=== PATIENT | male | born 1960 | race Caucasian/White ===

== ENCOUNTER 2020-08-17 08:03 | Inpatient (IN) | payer BC ==
[2020-08-17] MEDS ORDERED: SODIUM CHLORIDE 0.9% 500 ML 500 ML IV STA (08:05)
--- NOTE | 2020-08-17 08:15 | CT ---
EXAMINATION TYPE: CT brain wo con for TPA DATE OF EXAM: 08/17/2020 HISTORY: Cannot move right arm, CODE STROKE. Acute onset neuro deficit. CT DLP: 1101.8 mGycm. Automated Exposure Control for Dose Reduction was Utilized. TECHNIQUE: CT scan of the head is performed without contrast. COMPARISON: None. FINDINGS: There is no acute intracranial hemorrhage or midline shift identified. There is diffuse v entricular and sulcal prominence consistent with diffuse age-related cerebral atrophy. There is low- attenuation in the periventricular white matter consistent with chronic small vessel ischemic change. The globes are intact and the visualized sinuses are clear. IMPRESSION: No acute intracranial hemorrhage or midline shift. There is mild diffuse age-related ce rebral atrophy and mild to moderate chronic small vessel ischemic change noted.
[2020-08-17] MEDS: LABETALOL 5 MG/ML VIAL MDV IVP STA ×2 (08:19→09:01)
[2020-08-17 08:28] LABS: Glucose,Whole Blood 118 mg/dL (75-99)
--- NOTE | 2020-08-17 08:31 | ED ---
General Adult HPI - General Chief complaint: Neuro Symptoms/Deficit Stated complaint: poss stroke Time Seen by Provider: 08/17/20 08:07 Source: patient, EMS Mode of arrival: EMS Limitations: physical limitation - History of Present Illness Initial comments: Dictation was produced using [employer] dictation software. please excuse any grammatical, word or spelling errors. This patient was cared for during a federal and state declared state of emerge ncy secondary to Covid 19 Chief Complaint: 60-year-old male past medical history of coronary artery bypass presents with strokelike symptoms History of Present Illness: 60-year-old male he states he woke up this morning with left-handed sensory issues and weakness. Patient states that he woke up with the symptoms. Limits after waking up and noticing the deficits in his hand he noticed that his face also felt strange. He tried to get up and walk however was unable to light. He muscles: Patient is brought to the emergency department. Patient states he went to bed last night with out any symptoms. En route to the emergency department he had on and off strokelike symptoms accor ding to EMS. Patient had a normal sugar measured by EMS prehospital providers. Upon being in the emergency department now patient has complete resolution of his symptoms. Patient has taking any anticoagulation medications. He has no other complaints at this time. The ROS documented in this emergency department record has been reviewed and confirmed by me. Those systems with pertinent positive or negative responses have been documented in the HPI. All other systems are other negative and/or noncontributory. PHYSICAL EXAM: General Impression: Alert and oriented x3, not in acute distress HEENT: Normocephalic atraumatic, extra-ocular movements intact, pupils equal and reactive to light bilaterally, mucous membranes moist. Cardiovascular: Heart regular rate and rhythm Chest: Able to complete full sentences, no retractions, no tachypnea Abdomen: abdomen soft, non-tender, non-distended, no organomegaly Musculoskeletal: Pulses present and equal in all extremities, no peripheral edema Motor: no focal deficits noted Neurological: CN II-XII grossly intact, no focal motor or sensory deficits noted, NIH of 0 Skin: Intact with no visualized rashes Psych: Normal affect and mood ED course: 60-year-old male presents today with on and off episodic strokelike symptoms starting at 7 AM. He woke up with the symptoms. Vital signs upon arrival shows blood pressure 192/80 111, rest of vital signs within acceptable limits. He was paged. Case was discussed with Dr. Carrillo. Patient not a TPA or thrombectomy candidate at this time. Patient is reevaluated at bedside at approximately 8:40 AM. He had a recurrence of symptoms. NIH was remeasured and found to be 3-4. He had left lower facial weakness, drift of the left upper extremity and mild drift of the left lower extremity. Dr. Carrillo was recontacted at 8:43 AM. Is recommended the patient receive thrombolytics. TPA ordered at 8:45 AM. Laboratory evaluation obtained. CBC, coag panel, metabolic panel is unremarkable. Troponin is negative. Computed tomography scan of the brain and CT angios of the head and neck shows no acute processes. Case is discussed with Dr. Larry who is on-call for neurology was aware patient. Case was also discussed with Dr. Nieves who is willing to accept patient care to the ICU. Patient reevaluated at approximately 10 AM found with stable medical condition. He still has been having on and off symptoms of left upper extremity drift and left lower facial weakness. EKG interpretation: Ventricular rate 90, normal sinus rhythm, CO interval 150, QRS 90, QTC 474. No CO prolongation, no QTC prolongation, no ST or T-wave changes noted. No old EKG for comparison. Overall, this EKG is unremarkable - Related Data Home Medications Medication Instructions Recorded Confirmed Ascorbic Acid [Vitamin C] 1,000 mg PO DAILY 08/17/20 08/17/20 Aspirin EC [Ecotrin] 325 mg PO DAILY 08/17/20 08/17/20 Cholecalciferol [Vitamin D3 (25 1,000 unit PO DAILY 08/17/20 08/17/20 Mcg = 1000 Iu)] Vitamin A 8,000 unit PO DAILY 08/17/20 08/17/20 Allergies Allergy/AdvReac Type Severity Reaction Status Date / Time Penicillins Allergy Rash/Hives Verified 08/17/20 09:16 Review of Systems ROS Statement: Those systems with pertinent positive or pertinent negative responses have been documented in the HPI. ROS Other: All systems not noted in ROS Statement are negative. Past Medical History Past Medical History: Hypertension, Myocardial Infarction ([place]) History of Any Multi-Drug Resistant Organisms: None Reported Past Surgical History: Coronary Bypass/CABG, Heart Catheterization With Stent Past Psychological History: No Psychological Hx Reported Smoking Status: Never smoker Past Alcohol Use History: None Reported Past Drug Use History: None Reported General Exam Limitations: physical limitation Course Vital Signs 08/17/20 08/17/20 08/17/20 08:15 08:22 08:30 Temperature 98.1 F Pulse Rate 78 77 81 Respiratory 18 18 18 Rate Blood Pressure 207/108 192/11 175/119 O2 Sat by Pulse 98 98 99 Oximetry 08/17/20 08/17/20 08/17/20 08:40 08:58 09:10 Temperature Pulse Rate 84 82 89 Respiratory 18 18 18 Rate Blood Pressure 193/128 195/105 175/107 O2 Sat by Pulse 98 99 99 Oximetry 08/17/20 08/17/20 08/17/20 09:25 09:40 09:55 Temperature Pulse Rate 73 82 82 Respiratory 18 18 18 Rate Blood Pressure 183/105 162/105 186/114 O2 Sat by Pulse 99 98 96 Oximetry 08/17/20 08/17/20 10:10 10:25 Temperature Pulse Rate 79 77 Respiratory 18 18 Rate Blood Pressure 178/100 163/103 O2 Sat by Pulse 97 97 Oximetry Medical Decision Making - Lab Data Result diagrams: 08/17/20 08:13 08/17/20 08:13 Lab Results 08/17/20 08/17/20 08/17/20 Range/Units 08:13 08:13 08:13 WBC 5.0 (3.8-10.6) k/uL RBC 5.76 (4.30-5.90) m/uL Hgb 16.4 (13.0-17.5) gm/dL Hct 51.1 (39.0-53.0) % MCV 88.8 (80.0-100.0) fL MCH 28.5 (25.0-35.0) pg MCHC 32.1 (31.0-37.0) g/dL RDW 13.5 (11.5-15.5) % Plt Count 236 (150-450) k/uL MPV 7.2 Neutrophils % 66 % Lymphocytes % 20 % Monocytes % 7 % Eosinophils % 5 % Basophils % 1 % Neutrophils # 3.3 (1.3-7.7) k/uL Lymphocytes # 1.0 (1.0-4.8) k/uL Monocytes # 0.4 (0-1.0) k/uL Eosinophils # 0.2 (0-0.7) k/uL Basophils # 0.0 (0-0.2) k/uL PT 10.0 (9.0-12.0) sec INR 1.0 (<1.2) APTT 24.0 (22.0-30.0) sec Sodium 137 (137-145) mmol/L Potassium 4.1 (3.5-5.1) mmol/L Chloride 104 (98-107) mmol/L Carbon Dioxide 26 (22-30) mmol/L Anion Gap 7 mmol/L BUN 20 (9-20) mg/dL Creatinine 1.03 (0.66-1.25) mg/dL Est GFR (CKD-EPI)AfAm 90 (>60 ml/min/1.73 sqM) Est GFR (CKD-EPI)NonAf 78 (>60 ml/min/1.73 sqM) Glucose 119 H (74-99) mg/dL POC Glucose (mg/dL) (75-99) mg/dL POC Glu Trial Mgr ID Calcium 9.0 (8.4-10.2) mg/dL Total Bilirubin 1.2 (0.2-1.3) mg/dL AST 22 (17-59) U/L ALT 24 (4-49) U/L Alkaline Phosphatase 61 (38-126) U/L Troponin I (0.000-0.034) ng/mL Total Protein 7.1 (6.3-8.2) g/dL Albumin 4.2 (3.5-5.0) g/dL 08/17/20 08/17/20 Range/Units 08:13 08:16 WBC (3.8-10.6) k/uL RBC (4.30-5.90) m/uL Hgb (13.0-17.5) gm/dL Hct (39.0-53.0) % MCV (80.0-100.0) fL MCH (25.0-35.0) pg MCHC (31.0-37.0) g/dL RDW (11.5-15.5) % Plt Count (150-450) k/uL MPV Neutrophils % % Lymphocytes % % Monocytes % % Eosinophils % % Basophils % % Neutrophils # (1.3-7.7) k/uL Lymphocytes # (1.0-4.8) k/uL Monocytes # (0-1.0) k/uL Eosinophils # (0-0.7) k/uL Basophils # (0-0.2) k/uL PT (9.0-12.0) sec INR (<1.2) APTT (22.0-30.0) sec Sodium (137-145) mmol/L Potassium (3.5-5.1) mmol/L Chloride (98-107) mmol/L Carbon Dioxide (22-30) mmol/L Anion Gap mmol/L BUN (9-20) mg/dL Creatinine (0.66-1.25) mg/dL Est GFR (CKD-EPI)AfAm (>60 ml/min/1.73 sqM) Est GFR (CKD-EPI)NonAf (>60 ml/min/1.73 sqM) Glucose (74-99) mg/dL POC Glucose (mg/dL) 118 H (75-99) mg/dL POC Glu Trial Mgr ID Marisela Hopper Calcium (8.4-10.2) mg/dL Total Bilirubin (0.2-1.3) mg/dL AST (17-59) U/L ALT (4-49) U/L Alkaline Phosphatase (38-126) U/L Troponin I <0.012 (0.000-0.034) ng/mL Total Protein (6.3-8.2) g/dL Albumin (3.5-5.0) g/dL Critical Care Time Critical Care Time: Yes Total Critical Care Time: 33 Disposition Clinical Impression: CVA (cerebral vascular accident) Disposition: ADMITTED IP TO THIS HOSP Condition: Critical Referrals: None,Stated [REFERRING] - 1-2 days Decision Time: 10:35
[2020-08-17 08:36] LABS: Basophils % (A) 1 %; Eosinophils # (A) 0.2 k/uL (0-0.7); Eosinophils % (A) 5 %; HCT 51.1 % (39.0-53.0); HGB 16.4 gm/dL (13.0-17.5); Lymphocytes % (A) 20 %; MCH 28.5 pg (25.0-35.0); MCHC 32.1 g/dL (31.0-37.0); MCV 88.8 fL (80.0-100.0); Mean Platelet Volume 7.2; Monocytes # (A) 0.4 k/uL (0-1.0); Monocytes % (A) 7 %; Neutrophils # (A) 3.3 k/uL (1.3-7.7); Neutrophils % (A) 66 %; Platelet Count 236 k/uL (150-450); RBC 5.76 m/uL (4.30-5.90); RDW 13.5 % (11.5-15.5)
[2020-08-17 08:43] LABS: Albumin 4.2 g/dL (3.5-5.0); Potassium 4.1 mmol/L (3.5-5.1); Total Bilirubin 1.2 mg/dL (0.2-1.3); Total Protein 7.1 g/dL (6.3-8.2)
[2020-08-17] MEDS ORDERED: Alteplase PER PHARMACY Stroke 1 EACH MISC MISCELLANE PRN (08:44)
[2020-08-17] MEDS ORDERED: ALTEPLASE 62 MG in EMPTY BAG 1 BAG IV STA (08:46)
[2020-08-17] MEDS ORDERED: ALTEPLASE BOLUS 7 MG in EMPTY SYRINGE 1 SYR IV STA (08:46)
--- NOTE | 2020-08-17 08:47 | CT ---
EXAMINATION TYPE: CT angio head neck DATE OF EXAM: 08/17/2020 HISTORY: CODE STROKE: left arm weakness, neuro deficits COMPARISON: None. CT DLP: 498.7 mGycm. Automated Exposure Control for Dose Reduction was Utilized. TECHNIQUE: CTA scan of the head and neck there performed with IV Contrast, patient injected with 65 mL of Isovue 370, axial images are obtained, coronal and sagittal reformatted images are reviewed. Th ree-D reconstructed images are created on an independent workstation and reviewed. FINDINGS: Carotid/Vascular Structures: Normal three-vessel origin from aortic arch. Right common carotid artery showed normal origin from brachiocephalic artery. No significant plaque or stenosis in the common or internal carotid arteries bilaterally including a level carotid bulbs. Mild mixed plaque seen in the left internal carotid artery shortly after its origin. No significant plaque or stenosis in the bila teral external carotid arteries. There is dominant left vertebral artery. Vertebral arteries are conteh nt to basilar junction. There is a patent left posterior communicating artery. There is hypoplastic r ight posterior communicating artery. There is no significant focal stenosis or aneurysmal change. Anterior circulation shows patent small caliber and segment anterior communicating artery. There is n o significant focal stenosis or aneurysmal change in the anterior circulation. Other: Partial visualization of post-CABG changes with mediastinal clips and sternal wires. Moderate to severe anterior spurring C5-C7 levels. Posterior spurring effaces the anterior thecal sac at these levels. IMPRESSION: No significant stenosis in common or internal carotid arteries bilaterally. No significa nt stenosis or aneurysmal change at the level of the [place].
[2020-08-17] MEDS ORDERED: LABETALOL 200 MG in SODIUM CHLORIDE 0.9% 160 ML IV ONE (10:01)
[2020-08-17] MEDS ORDERED: TICAGRELOR 90 MG TAB PO STA (10:01)
[2020-08-17] MEDS ORDERED: ATORVASTATIN 80 MG TAB PO STA (10:02)
[2020-08-17] MEDS ORDERED: LABETALOL 5 MG/ML VIAL MDV IVP STA (10:02)
[2020-08-17] MEDS ORDERED: niCARdipine 20 MG in SODIUM CHLORIDE 0.9% 192 ML IV SCH (10:30)
[2020-08-17] MEDS ORDERED: NALOXONE 0.4 MG/ML 1 ML VIAL IV PRN (10:33)
--- NOTE | 2020-08-17 10:44 | XR ---
EXAMINATION TYPE: XR chest 1V portable DATE OF EXAM: 08/17/2020 HISTORY: Shortness of breath. COMPARISON: 11/21/09 TECHNIQUE: Single view of the chest is submitted. FINDINGS: Demonstrated are scattered senescent parenchymal change. There is no evidence for focal infiltrate. The heart is stable. Hilar and mediastinal structures are within normal limits. Degenerative changes are seen of the dorsal spine. IMPRESSION: 1. Chronic changes without evidence for acute pulmonary disease.
[2020-08-17] MEDS ORDERED: SODIUM CHLORIDE 0.9% 1,000 ML IV SCH (10:45)
--- NOTE | 2020-08-17 14:04 | P.CNNES ---
History of Present Illness Consult date: 08/17/20 Requesting physician: Valdemar Valdovinos Reason for Consult: CVA History of Present Illness: Patient is a 60-year-old male came to the hospital at 8:03 AM by ambulance, he apparently came to the hospital with recurrent left-sided symptoms. Patient states that he went to sleep last night as usual. He remembers waking up at around 5:30 AM and extended to someone and was fine, went back to bed. At 7 AM he woke up and felt funny, left arm felt heavy. When he was walking, left leg felt weak and felt dizzy. While walking he fell onto the left side. He sat on the bed, and called ambulance. While he was en-route to the hospital, all his symptoms went away. However before he arrived to the hospital the symptoms sunita ppeared. Stroke code was activated. His symptoms again went away after short period of time in the ER. Patient's symptoms completely resolved in the ER and was considered not a candidate for TPA. However at 8:40 AM, while he was in the CT scanner, he has recurrence of symptoms with NIH stroke scale of 3-4. He had left lower facial weakness, drift of the left upper extremity and mild drift of the left lower activity. ED staff discussed with stroke neurologist, Dr Rico, and patient was given TPA ordered at 8:45 AM. However even after giving TPA, patient has 5-8 recurrent spells of left hemiparesis, in which he had significant weakness of his left arm and leg, facial droop and slurred speech. Each of them lasting for about 5 minutes. Patient was given Brillinta at 10:09 AM as per recommendation from Dr. Whitley. At present patient has no symptoms and he is back to baseline. Patient's last focal symptoms was on 10:40 AM. Blood pressure on arrival to the ER 207/108, pulse rate 78, temperature 98.1. Patient received 10 mg of labetalol which controlled the blood pressure to ac ceptable range. CT head showed no acute intracranial hemorrhage or midline shift. There is mild diffuse age-related cerebral atrophy in [id number] chronic small vessel ischemic change. CTA of head and neck showed no significant stenosis, nor internal carotid arteries bilaterally. No significant stenosis or aneurysm was change at the level of [place]. EKG shows normal sinus rhythm. Patient's blood test shows normal CBC, PT/PTT, Chem-20. Patient does take aspirin 325 mg for the last 12 years since he had undergone open heart surgery. Also has history of cardiac stents. Patient has hypertension, but no diabetes. No previous history of strokes TIA. He is a nonsmoker does not drink alcohol. Patient also takes vitamin A 8000 units daily, vitamin C and vitamin D 1000 units daily. Review of Systems At present completely unremarkable. All 14 point review of systems reviewed with the patient. Past Medical History Past Medical History: Hypertension, Myocardial Infarction ([place]) History of Any Multi-Drug Resistant Organisms: None Reported Past Surgical History: Coronary Bypass/CABG, Heart Catheterization With Stent Past Psychological History: No Psychological Hx Reported Smoking Status: Never smoker Past Alcohol Use History: None Reported Past Drug Use History: None Reported Medications and Allergies Home Medications Medication Instructions Recorded Confirmed Type Ascorbic Acid [Vitamin C] 1,000 mg PO DAILY 08/17/20 08/17/20 History Aspirin EC [Ecotrin] 325 mg PO DAILY 08/17/20 08/17/20 History Cholecalciferol [Vitamin D3 (25 1,000 unit PO DAILY 08/17/20 08/17/20 History Mcg = 1000 Iu)] Vitamin A 8,000 unit PO DAILY 08/17/20 08/17/20 History Allergies Allergy/AdvReac Type Severity Reaction Status Date / Time Penicillins Allergy Rash/Hives Verified 08/17/20 09:16 Physical Examination - Vital Signs Vital Signs: Vital Signs Temp Pulse Resp BP Pulse Ox 08/17/20 10:10 79 18 178/100 97 08/17/20 09:55 82 18 186/114 96 08/17/20 09:40 82 18 162/105 98 08/17/20 09:25 73 18 183/105 99 08/17/20 09:10 89 18 175/107 99 08/17/20 08:58 82 18 195/105 99 08/17/20 08:40 84 18 193/128 98 08/17/20 08:30 81 18 175/119 99 08/17/20 08:22 98.1 F 77 18 192/11 98 08/17/20 08:15 78 18 207/108 98 Intake and Output 08/16/20 08/17/20 08/17/20 22:59 06:59 14:59 Other: Weight 77.111 kg On examination patient is a late middle aged male, in no acute distress. Patient is alert and awake fully oriented to time place and person. Speech and language functions are normal. Attention and concentration fund of knowledge adequate. On cranial nerve examination pupils are round and reactive to light, visual aviles are full on confrontation, extraocular muscles are intact with no nystagmus. Face is symmetric, tongue protrudes the midline. Palatal elevation and sensation normal, hearing and shoulder shrug normal. Facial sensation is normal. On muscle strength testing there is no pronator drift and the strength is normal in arms and legs distally and proximally. Reflexes are 1+ and plantars downgoing. Sensory to touch is equal with no negle ct on double simultaneous stimulation. No ataxia for [id number] or [id number] testing, tone and bulk of muscles normal. Gait deferred. On general examination there is no bruit, S1 and S2 audible, peripheral pulses present. No peripheral edema. Abdomen soft nontender, chest clear. Results - Laboratory Findings CBC and BMP: 08/17/20 08:13 08/17/20 08:13 Abnormal Lab Findings: Abnormal Labs 08/17/20 08/17/20 08:13 08:16 Glucose 119 H POC Glucose (mg/dL) 118 H Assessment and Plan Assessment: * Recurrent crescendo type of TIA/CVA with left hemiparesis, since 7 AM this morning. Patient is status post TPA. Symptoms are fine resolved since he received Brillinta. * Hypertension * Coronary artery disease Plan: * Patient has received TPA, doing very well. Denies any focal symptoms. As patient was still having recurrent symptoms on the left side, patient was given Brillinta 90 mg loading dose in the ER. Since then patient's symptoms have resolved. * At present patient's NIH stroke scale is 0. * Patient will be admitted to ICU for close neurological monitoring and neuro checks. * Patient to have repeat computed tomography scan of head in 24 hours. * Patient had a CTA of head and neck, which revealed no significant stenosis. * 2-D echo with bubble study, rule out PFO. * Hemoglobin A1c, fasting lipid panel. * Discussed with neuro intervention team in detail.
[2020-08-17 14:36] VITALS: BP 174/104; PULSE 76; RESP 17; TEMP 97
[2020-08-17] MEDS ORDERED: TICAGRELOR 90 MG TAB PO ONE (21:00)
--- NOTE | 2020-09-16 21:30 | P.HPIM ---
History of Present Illness H&P Date: 08/19/20 i never saw or examined this patient he was tranfered from the ER after TPA never admitted. Past Medical History Past Medical History: Hypertension, Myocardial Infarction ([place]) History of Any Multi-Drug Resistant Organisms: None Reported Past Surgical History: Coronary Bypass/CABG, Heart Catheterization With Stent Past Psychological History: No Psychological Hx Reported Smoking Status: Never smoker Past Alcohol Use History: None Reported Past Drug Use History: None Reported Medications and Allergies Home Medications Medication Instructions Recorded Confirmed Type Ascorbic Acid [Vitamin C] 1,000 mg PO DAILY 08/17/20 08/17/20 History Aspirin EC [Ecotrin] 325 mg PO DAILY 08/17/20 08/17/20 History Cholecalciferol [Vitamin D3 (25 1,000 unit PO DAILY 08/17/20 08/17/20 History Mcg = 1000 Iu)] Vitamin A 8,000 unit PO DAILY 08/17/20 08/17/20 History Allergies Allergy/AdvReac Type Severity Reaction Status Date / Time Penicillins Allergy Rash/Hives Verified 08/17/20 09:16 Physical Exam Osteopathic Statement: *. No significant issues noted on an osteopathic structural exam other than those noted in the History and Physical/Consult. Results CBC & Chem 7: 08/17/20 08:13 08/17/20 08:13
== END 2020-08-18 02:03 | disposition short-term general hospital (02) | DRG 62 ==
LOC: EC 08:03 → 2SICU 10:33
PROVIDERS: ADMIT Family Medicine; ATTEND Family Medicine
DX: I63.9 Cerebral infarction, unspecified (principal); G81.94 Hemiplegia, unspecified affecting left nondominant side; R29.810 Facial weakness; R47.81 Slurred speech; R29.708 NIHSS score 8; I10 Essential (primary) hypertension; I25.10 Atherosclerotic heart disease of native coronary artery without angina pectoris; I25.2 Old myocardial infarction; Z79.82 Long term (current) use of aspirin; Z79.899 Other long term (current) drug therapy; Z95.5 Presence of coronary angioplasty implant and graft; Z95.1 Presence of aortocoronary bypass graft; Z88.0 Allergy status to penicillin
CPT/HCPCS: 36415; 37195; 70450; 70496; 70498; 71045; 80053; 84484; 85025; 85610; 85730; 93005; 96374; 99291

== ENCOUNTER 2023-03-18 19:42 | Inpatient (IN) | payer BC, MEDICARE ==
[2023-03-18 21:03] LABS: Basophils % (A) 0 %; Eosinophils # (A) 0.3 k/uL (0-0.7); Eosinophils % (A) 4 %; HCT 46.3 % (39.0-53.0); HGB 15.3 gm/dL (13.0-17.5); Lymphocytes # (A) 1.3 k/uL (1.0-4.8); Lymphocytes % (A) 19 %; MCH 29.7 pg (25.0-35.0); MCHC 33.1 g/dL (31.0-37.0); MCV 89.8 fL (80.0-100.0); Mean Platelet Volume 7.5; Monocytes # (A) 0.5 k/uL (0-1.0); Monocytes % (A) 8 %; Neutrophils # (A) 4.3 k/uL (1.3-7.7); Neutrophils % (A) 66 %; Platelet Count 267 k/uL (150-450); RBC 5.16 m/uL (4.30-5.90); RDW 13.5 % (11.5-15.5); WBC 6.5 k/uL (3.8-10.6)
[2023-03-18 21:11] LABS: ALT 22 U/L (4-49); AST 26 U/L (17-59); African American GFR (CKD) >90 (>60 ml/min/1.73 sqM); Albumin 4.2 g/dL (3.5-5.0); Alkaline Phosphatase 71 U/L (38-126); Anion Gap 11 mmol/L; Blood Urea Nitrogen 14 mg/dL (9-20); Calcium 9.2 mg/dL (8.4-10.2); Carbon Dioxide 25 mmol/L (22-30); Chloride 102 mmol/L (98-107); Glucose 99 mg/dL (74-99); Magnesium 2.1 mg/dL (1.6-2.3); Non-African American GFR(CKD) >90 (>60 ml/min/1.73 sqM); Potassium 4.1 mmol/L (3.5-5.1); Sodium 138 mmol/L (137-145); Total Bilirubin 1.3 mg/dL (0.2-1.3); Total Protein 7.2 g/dL (6.3-8.2)
--- NOTE | 2023-03-18 21:38 | XR ---
EXAMINATION TYPE: XR chest 2V DATE OF EXAM: 03/18/2023 COMPARISON: 08/17/2020 HISTORY: 62-year-old male with chest pain TECHNIQUE: PA and lateral views FINDINGS: Heart normal size. Aorta and pulmonary vasculature within normal limits. Median sternotomy wires. Jasper e type of retained lead fragments are noted at the base of the heart. Loop recorder device along the left paramedian anterior chest wall. No consolidation or pleural effusion. Addition the mid thoracic spine. IMPRESSION: 1. Thin wire fragment projecting at the base of the heart. Probably fractured and migrated pacer lead . Clinically correlate. 2. Post-CABG changes. Otherwise, no acute process seen.
[2023-03-18] MEDS ORDERED: HEPARIN SODIUM 1,000 UN/ML (10ML VL) IV ONE (21:50)
[2023-03-18] MEDS ORDERED: HEPARIN SODIUM 1,000 UN/ML (10ML VL) IV PRN (21:50)
[2023-03-18] MEDS ORDERED: NALOXONE 0.4 MG/ML 1 ML VIAL IV PRN (21:51)
--- NOTE | 2023-03-18 21:57 | ED ---
General Adult HPI - General Chief complaint: Chest Pain Stated complaint: High BP Time Seen by Provider: 03/18/23 20:38 Source: patient Mode of arrival: ambulatory Limitations: no limitations - History of Present Illness Initial comments: This is a 62-year-old male with a past medical history including previous cardiac stents, previous MO, previous CVA without any deficits and hypertension presented to the emergency department for increasing blood pressure as well as chest discomfort. The patient stated over the last 3 days he has had increasi ngly high blood pressures that had not resolved with medications. The patient also stated that he had sternal chest discomfort over the last 3 days that has been persistent. The patient did state that he had stressful events including a flight of basement over the last several days but stated that the symptoms were persistent so he was concerned. The patient denied any other acute pain or complaints at this time. - Related Data Home Medications Medication Instructions Recorded Confirmed Ascorbic Acid [Vitamin C] 1,000 mg PO DAILY 08/17/20 08/17/20 Aspirin EC [Ecotrin] 325 mg PO DAILY 08/17/20 08/17/20 Cholecalciferol [Vitamin D3 (25 1,000 unit PO DAILY 08/17/20 08/17/20 Mcg = 1000 Iu)] Vitamin A [Vitamin A (8,000 Units 8,000 unit PO DAILY 08/17/20 08/17/20 = 2,400 MCG)] Allergies Allergy/AdvReac Type Severity Reaction Status Date / Time Penicillins Allergy Rash/Hives Verified 03/18/23 20:06 Review of Systems ROS Statement: Those systems with pertinent positive or pertinent negative responses have been documented in the HPI. ROS Other: All systems not noted in ROS Statement are negative. Past Medical History Past Medical History: CVA/TIA, Hypertension, Myocardial Infarction ([place]) History of Any Multi-Drug Resistant Organisms: None Reported Past Surgical History: Coronary Bypass/CABG, Heart Catheterization With Stent Past Psychological History: No Psychological Hx Reported Smoking Status: Never smoker Past Alcohol Use History: None Reported Past Drug Use History: None Reported General Exam Limitations: no limitations General appearance: alert, in no apparent distress Head exam: Present: atraumatic, normocephalic, normal inspection Eye exam: Present: normal appearance, PERRL Pupils: Present: normal accommodation ENT exam: Present: normal exam, normal oropharynx, mucous membranes moist Neck exam: Present: normal inspection, full ROM Respiratory exam: Present: normal lung sounds bilaterally Cardiovascular Exam: Present: regular rate, normal rhythm, normal heart sounds GI/Abdominal exam: Present: soft, normal bowel sounds Extremities exam: Present: normal inspection, full ROM Back exam: Present: normal inspection, full ROM Neurological exam: Present: alert, oriented X3, CN II-XII intact Psychiatric exam: Present: normal affect, normal mood Skin exam: Present: warm, dry Course Vital Signs 03/18/23 03/18/23 03/18/23 20:03 20:36 21:40 Temperature 98.4 F Pulse Rate 74 64 68 Respiratory 18 16 18 Rate Blood Pressure 152/82 181/90 171/92 O2 Sat by Pulse 100 97 98 Oximetry EKG Findings - EKG Comments: EKG Findings:: An EKG was obtained and was interpreted by myself showing a rate of 64, NC interval 166, QRS duration 105 and QTC of 425. This EKG showed a normal sinus rhythm with no ST segment elevation or depression noted. Medical Decision Making - Medical Decision Making Was pt. sent in by a medical professional or institution (, PA, [employer] MANAGER, urgent care, hospital, or snf...) When possible be specific @ -No Did you speak to anyone other than the patient for history (EMS, parent, family, police, friend...)? What history was obtained from this source @ -No Did you review nursing and triage notes (agree or disagree)? Why? @ -I reviewed and agree with nursing and triage notes Were old charts reviewed (outside hosp., previous admission, EMS record, old EKG, old radiological studies, urgent care reports/EKG's, snf records)? Report findings @ -No old charts were reviewed Differential Diagnosis (chest pain, altered mental status, abdominal pain women, abdominal pain men, vaginal bleeding, weakness, fever, dyspnea, syncope, headache, dizziness, GI bleed, back pain, seizure, CVA, palpatations, mental health)? @ -ACS, musculoskeletal strain, costochondritis EKG interpreted by me (3pts min.). @ -As above X-rays interpreted by me (1pt min.). @ -Chest was obtained and was interpreted by myself showing post-CABG changes otherwise no acute process seen however there was a thin wire fragment projecting at the base of the heart. There was possibly of fragmented and migrated pacer lead. The patient did not complain of any pain in this area however. Cardiology is concsulted during admission and can further evaluate this finding. CT interpreted by me (1pt min.). @ -None done U/S interpreted by me (1pt. min.). @ -None done What testing was considered but not performed or refused? (CT, X-rays, U/S, labs)? Why? @ -None What meds were considered but not given or refused? Why? @ -None Did you discuss the management of the patient with other professionals (professionals i.e. , PA, [employer] MANAGER, lab, RT, psych nurse, social science teacher, rn or lpn, teacher, dog license officer supervisor, case hardener)? Give summary @ -Yes, admitting physician was contacted regarding patient admission. Was smoking cessation discussed for >3mins.? @ -No Was critical care preformed (if so, how long)? @ -No Were there social determinants of health that impacted care today? How? (Homelessness, low income, unemployed, alcoholism, drug addiction, transportation, low edu. Level, literacy, decrease access to med. care, residential, rehab)? @ -No Was there de-escalation of care discussed even if they declined (Discuss DNR or withdrawal of care, Hospice)? DNR status @ -No What co-morbidities impacted this encounter? (DM, HTN, Smoking, COPD, CAD, Cancer, CVA, ARF, Chemo, Hep., AIDS, mental health diagnosis, sleep apnea, morbid obesity)? @ -Hypertension, previous CABG, previous cardiac stents, previous MO and CVA. Was patient admitted / discharged? Hospital course, mention meds given and route, prescriptions, significant lab abnormalities, going to OR and other pertinent info. @ -The patient was seen and evaluated in the emergency department. Physical exam, the patient was resting in bed without any acute distress. Vital signs admission showed mild hypertension however the remaining vital signs within normal limits. Workup was obtained and showed an elevated troponin and in the setting of his chest pain and previous cardiac history the patient was likely s uffering from a NSTEMI. Due to this, the patient was started on a heparin drip and will be admitted for cardiology evaluation. The patient was told of these results and was agreeable to the plan. The patient was admitted in stable condition. Undiagnosed new problem with uncertain prognosis? @ -No Drug Therapy requiring intensive monitoring for toxicity (Heparin, Nitro, Insulin, Cardizem)? @ -Heparin Were any procedures done? @ -No Diagnosis/symptom? @ -NSTEMI Acute, or Chronic, or Acute on Chronic? @ -Acute Uncomplicated (without systemic symptoms) or Complicated (systemic symptoms)? @ -Complicated Side effects of treatment? @ -No Exacerbation, Progression, or Severe Exacerbation? @ -No Poses a threat to life or bodily function? How? (Chest pain, USA, MO, pneumonia, PE, COPD, DKA, ARF, appy, cholecystitis, CVA, Diverticulitis, Homicidal, Suicidal, threat to staff... and all critical care pts) @ -Yes, continued ACS can lead to permanent damage and possible . - Lab Data Result diagrams: 03/18/23 20:49 03/18/23 20:49 Lab Results 03/18/23 03/18/23 03/18/23 Range/Units 20:49 20:49 20:49 WBC 6.5 (3.8-10.6) k/uL RBC 5.16 (4.30-5.90) m/uL Hgb 15.3 (13.0-17.5) gm/dL Hct 46.3 (39.0-53.0) % MCV 89.8 (80.0-100.0) fL MCH 29.7 (25.0-35.0) pg MCHC 33.1 (31.0-37.0) g/dL RDW 13.5 (11.5-15.5) % Plt Count 267 (150-450) k/uL MPV 7.5 Neutrophils % 66 % Lymphocytes % 19 % Monocytes % 8 % Eosinophils % 4 % Basophils % 0 % Neutrophils # 4.3 (1.3-7.7) k/uL Lymphocytes # 1.3 (1.0-4.8) k/uL Monocytes # 0.5 (0-1.0) k/uL Eosinophils # 0.3 (0-0.7) k/uL Basophils # 0.0 (0-0.2) k/uL Sodium 138 (137-145) mmol/L Potassium 4.1 (3.5-5.1) mmol/L Chloride 102 (98-107) mmol/L Carbon Dioxide 25 (22-30) mmol/L Anion Gap 11 mmol/L BUN 14 (9-20) mg/dL Creatinine 0.89 (0.66-1.25) mg/dL Est GFR (CKD-EPI)AfAm >90 (>60 ml/min/1.73 sqM) Est GFR (CKD-EPI)NonAf >90 (>60 ml/min/1.73 sqM) Glucose 99 (74-99) mg/dL Calcium 9.2 (8.4-10.2) mg/dL Magnesium 2.1 (1.6-2.3) mg/dL Total Bilirubin 1.3 (0.2-1.3) mg/dL AST 26 (17-59) U/L ALT 22 (4-49) U/L Alkaline Phosphatase 71 (38-126) U/L Troponin I 0.160 H* (0.000-0.034) ng/mL Total Protein 7.2 (6.3-8.2) g/dL Albumin 4.2 (3.5-5.0) g/dL Disposition Clinical Impression: Acute non-ST elevation myocardial infarction (NSTEMI) Disposition: ADMITTED IP TO THIS HOSP Condition: Stable Is patient prescribed a controlled substance at d/c from ED?: No Time of Disposition: 21:30 Decision to Admit Reason: Admit from EC Decision Date: 03/18/23 Decision Time: 21:30
[2023-03-18] MEDS ORDERED: HEPARIN SOD,PORK IN 0.45% NACL 25,000 UNIT in 0.45% NACL 1 250ML.BAG IV SCH (22:00)
[2023-03-18 23:45] LABS: Prothrombin Time 10.8 sec (9.0-12.0)
[2023-03-18] MEDS: METOPROLOL TARTRATE 50 MG TAB PO SCH (23:49)
[2023-03-19 00:48] LABS: Partial Thromboplastin Time 128.6 sec (22.0-30.0)
[2023-03-19 05:35] LABS: Prothrombin Time 10.5 sec (9.0-12.0)
[2023-03-19] MEDS ORDERED: HEPARIN SODIUM,PORCINE 2,500 UNIT in SODIUM CHLORIDE 0.9% 250 ML IRRIGATION PRN (07:00)
[2023-03-19] MEDS ORDERED: HEPARIN SODIUM,PORCINE 10,000 UNIT in SODIUM CHLORIDE 0.9% 1,000 ML IRRIGATION PRN (07:00)
[2023-03-19 08:23] LABS: Basophils % (A) 0 %; Eosinophils # (A) 0.2 k/uL (0-0.7); Eosinophils % (A) 3 %; HCT 50.6 % (39.0-53.0); HGB 16.4 gm/dL (13.0-17.5); Lymphocytes # (A) 1.2 k/uL (1.0-4.8); Lymphocytes % (A) 19 %; MCH 29.5 pg (25.0-35.0); MCHC 32.5 g/dL (31.0-37.0); MCV 90.8 fL (80.0-100.0); Mean Platelet Volume 7.7; Monocytes # (A) 0.5 k/uL (0-1.0); Monocytes % (A) 8 %; Neutrophils # (A) 4.4 k/uL (1.3-7.7); Neutrophils % (A) 68 %; Platelet Count 272 k/uL (150-450); RBC 5.57 m/uL (4.30-5.90); RDW 13.4 % (11.5-15.5); WBC 6.5 k/uL (3.8-10.6)
[2023-03-19] MEDS: METOPROLOL TARTRATE 50 MG TAB PO SCH ×2 (08:34→20:51)
[2023-03-19] MEDS ORDERED: ALPRAZolam 0.5 MG TAB PO PRN (09:53)
[2023-03-19] MEDS ORDERED: ALPRAZolam 0.25 MG TAB PO PRN (09:53)
[2023-03-19] MEDS ORDERED: ASPIRIN 325 MG TAB PO STA (09:53)
[2023-03-19] MEDS ORDERED: NITROGLYCERIN SL TABS 0.4 MG TAB SUBLINGUAL PRN ×2 (09:53→14:39)
--- NOTE | 2023-03-19 09:53 | P.CRDCN ---
History of Present Illness Consult date: 03/19/23 History of present illness: History of Present Illness: The patient is a 62-year-old male with a known history of CAD, status post triple bypass 20 years ago, stenting of the SVG to the RCA in 2009, history of stroke with residual left-sided weakness who presented with symptoms of not feeling well, elevated blood pressure as well as chest discomfort. He was under increased amount of stress yesterday because of fluttering in his basement but started to have discomfort in the chest which is new to him since the stenting 13 years ago and noted his blood pressure was elevated. He had mild dyspnea, no dizziness or palpitations, no syncope. He denies any PND, orthopnea or peripheral edema. At the time of his stroke he received TPA subsequently is transferred to [place] and received a loop recorder with no documented atrial fibrillation according to him. Activity-garber he has been stable although limited by his left sided weakness. In the emergency room he had elevation of his troponin but no acute ST segment changes on the EKG. He is on IV heparin and pain-free at the time of my evaluation. Medications: Metoprolol tartrate 50 mg twice a day, aspirin once a day Review of Systems: Respiratory: No history of asthma, bronchitis or recent cough. GI: No nausea or vomiting . No history of peptic ulcer disease. No recent GI bleed. He had abdominal discomfort since he had Covid : No hematuria or dysuria. Nervous System: He has a prior stroke , no seizure. Physical Examination: 62-year-old male, alert, oriented no apparent distress ,Blood pressure 156/80, Heart rate 66 Head: Normocephalic. Eyes: Sclerae nonicteric. Neck: Good carotid upstroke, no bruit, no jugular venous distention. Lungs: Clear to auscultation. Heart: Regular rate and rhythm, S1-S2, no S3, no rub. Systolic ejection murmur. Abdomen: Soft nontender, positive bowel sounds no organomegaly. Extremities: No edema, intact distal pulses. Mild left-sided weakness, left radial artery harvested Labs: Hemoglobin 16.4, BUN 14, creatinine 0.89, potassium 4.1. Troponin 0.160, 0.597, 1.320. Chest x-ray with no acute infiltrate EKG: Sinus mechanism with minor nonspecific ST-T wave changes cannot exclude lateral wall ischemia Impression: 1. Non-STEMI in a patient with known history of CAD and prior CABG and PCI 2. History of hypertension 3. History of Covid 4. Prior stroke, no evidence of arrhythmia according to the patient, he has a loop recorder. Plan: 1. Add nitrate and RAYMOND inhibitor 2. Obtain an echocardiogram with Doppler 3. I have recommended to proceed with coronary angiography, the risks and the complications were discussed with the patient and his , they are in full agreement and understanding 4. Add statin 5. Depending on the results of the testing further recommendations will be made, thank you for this consult we will follow with you. Past Medical History Past Medical History: CVA/TIA, Hypertension, Myocardial Infarction ([place]) Last Myocardial Infarction Date:: 2009 History of Any Multi-Drug Resistant Organisms: None Reported Past Surgical History: Coronary Bypass/CABG, Heart Catheterization With Stent Additional Past Surgical History / Comment(s): CABG x3, loop recorder 2019 Past Anesthesia/Blood Transfusion Reactions: No Reported Reaction Date of Last Stent Placement:: 2009 Past Psychological History: No Psychological Hx Reported Smoking Status: Never smoker Past Alcohol Use History: None Reported Past Drug Use History: None Reported Medications and Allergies Home Medications Medication Instructions Recorded Confirmed Type Ascorbic Acid [Vitamin C] 1,000 mg PO DAILY 08/17/20 03/18/23 History Aspirin EC [Ecotrin] 81 mg PO DAILY 08/17/20 03/18/23 History Cholecalciferol [Vitamin D3 (25 1,000 unit PO DAILY 08/17/20 03/18/23 History Mcg = 1000 Iu)] Vitamin A [Vitamin A (8,000 Units 8,000 unit PO DAILY 08/17/20 03/18/23 History = 2,400 MCG)] Metoprolol Tartrate [Lopressor] 50 mg PO BID 03/18/23 03/18/23 History Allergies Allergy/AdvReac Type Severity Reaction Status Date / Time Penicillins Allergy Rash/Hives Verified 03/18/23 20:06 Physical Exam Vitals: Vital Signs Temp Pulse Pulse Resp BP BP BP 03/19/23 04:00 98.7 F 66 18 156/84 03/19/23 01:33 66 18 03/18/23 23:20 99.0 F 66 18 188/94 179/97 03/18/23 22:43 65 18 172/92 03/18/23 21:40 68 18 171/92 03/18/23 20:36 64 16 181/90 03/18/23 20:03 98.4 F 74 18 152/82 Pulse Ox 03/19/23 04:00 96 03/19/23 01:33 03/18/23 23:20 97 03/18/23 22:43 98 03/18/23 21:40 98 03/18/23 20:36 97 03/18/23 20:03 100 Intake and Output 03/18/23 03/19/23 03/19/23 22:59 06:59 14:59 Intake Total 30.383 Balance 30.383 Intake: IV 10 0.9 10 Intake, IV Titration 20.383 Amount Heparin Sod,Pork in 0.45% 20.383 NaCl 25,000 unit In 0.45 % NaCl 1 250ml.bag @ 12 UNITS/KG/HR 8.927 mls/hr IV .Q24H [facility] Rx#: [id number] Other: Voiding Method Toilet # Voids 1 Weight 74.389 kg 74.389 kg Results 03/19/23 07:45 03/18/23 20:49 Cardiac Enzymes 03/18/23 03/18/23 03/19/23 Range/Units 20:49 20:49 00:40 AST 26 (17-59) U/L Troponin I 0.160 H* 0.597 H* (0.000-0.034) ng/mL 03/19/23 Range/Units 04:09 AST (17-59) U/L Troponin I 1.320 H* (0.000-0.034) ng/mL Coagulation 03/18/23 03/19/23 03/19/23 Range/Units 22:51 04:09 07:45 PT 10.8 10.5 (9.0-12.0) sec APTT 128.6 H* 29.6 (22.0-30.0) sec CBC 03/18/23 03/19/23 Range/Units 20:49 07:45 WBC 6.5 6.5 (3.8-10.6) k/uL RBC 5.16 5.57 (4.30-5.90) m/uL Hgb 15.3 16.4 (13.0-17.5) gm/dL Hct 46.3 50.6 (39.0-53.0) % Plt Count 267 272 (150-450) k/uL Comprehensive Metabolic Panel 03/18/23 Range/Units 20:49 Sodium 138 (137-145) mmol/L Potassium 4.1 (3.5-5.1) mmol/L Chloride 102 (98-107) mmol/L Carbon Dioxide 25 (22-30) mmol/L BUN 14 (9-20) mg/dL Creatinine 0.89 (0.66-1.25) mg/dL Glucose 99 (74-99) mg/dL Calcium 9.2 (8.4-10.2) mg/dL AST 26 (17-59) U/L ALT 22 (4-49) U/L Alkaline Phosphatase 71 (38-126) U/L Total Protein 7.2 (6.3-8.2) g/dL Albumin 4.2 (3.5-5.0) g/dL Current Medications Generic Name Dose Route Start Last Admin Trade Name Freq PRN Reason Stop Dose Admin Aspirin 81 mg 03/20/23 09:00 Aspirin 81 Mg PO DAILY [facility] Heparin Sodium (Porcine) 0 unit 03/18/23 21:50 Heparin Sodium 1,000 Un/Ml (10ml Vl) IV PER PROTOCOL PRN Low PTT Protocol Heparin Sodium/Sodium Chloride 250 mls @ 8.927 mls/hr 03/18/23 22:00 03/19/23 01:42 25,000 unit/ Sodium Chloride IV 9 units/kg/hr .Q24H [facility] 6.695 mls/hr Titration Protocol 12 UNITS/KG/HR Metoprolol Tartrate 50 mg 03/18/23 23:45 03/19/23 08:34 Metoprolol Tartrate 50 Mg Tab PO 50 mg BID [facility] Administration Naloxone HCl 0.2 mg 03/18/23 21:51 Naloxone 0.4 Mg/Ml 1 Ml Vial IV Q2M PRN Opioid Reversal Intake and Output 03/18/23 03/19/23 03/19/23 22:59 06:59 14:59 Intake Total 30.383 Balance 30.383 Intake: IV 10 0.9 10 Intake, IV Titration 20.383 Amount Heparin Sod,Pork in 0.45% 20.383 NaCl 25,000 unit In 0.45 % NaCl 1 250ml.bag @ 12 UNITS/KG/HR 8.927 mls/hr IV .Q24H [facility] Rx#: [id number] Other: Voiding Method Toilet # Voids 1 Weight 74.389 kg 74.389 kg 03/19/23 07:45 03/18/23 20:49
[2023-03-19] MEDS ORDERED: lisinopriL 5 MG TAB PO SCH (10:00)
[2023-03-19] MEDS ORDERED: NITROGLYCERIN OINT 1 INCH/GM PACKET TOPICAL SCH (10:00)
[2023-03-19] MEDS: ATORVASTATIN 80 MG TAB PO STA ×2 (10:14→13:48)
[2023-03-19] MEDS ORDERED: fentaNYL (PF) 50 MCG/ML 2 ML AMP ONE (12:44)
[2023-03-19] MEDS ORDERED: VERAPAMIL 2.5 MG/ML 2 ML AMP ONE (12:44)
[2023-03-19] MEDS ORDERED: HEPARIN SODIUM 1,000 UN/ML (10ML VL) ONE (12:44)
[2023-03-19] MEDS ORDERED: LIDOCAINE 1% INJ 10MG/ML (20 ML MDV) ONE (12:51)
[2023-03-19] MEDS ORDERED: SODIUM CHLORIDE 0.9% 1,000 ML IV ONE (12:59)
--- NOTE | 2023-03-19 13:17 | P.HPIM ---
History of Present Illness H&P Date: 03/19/23 History of present illness; 62-year-old gentleman with past medical history sig nificant for coronary disease status post CABG, hypertension, CVA in the ER because of elevated blood pressure and chest pain. Patient stated that he noticed that for the last couple of days she has been having increasing blood pressure, it was associated with chest pressure, was central in location, persistent, nonradiating, no aggravating or relieving factors associated with this chest pressure. Denies any shortness of breath. Denies any palpitation. No orthopnea or PND. Because of Persistent chest pressure patient came to the ER Initial lab work done in the ER showed WBC 6.5, hemoglobin 10.3, platelet count 267, sodium 138, potassium 4.1, BUN 14, creatinine 0.89, AST 26, ALT 22, tropo calos 0.160 Chest x-ray done showed whire fragment projecting at the base of the heart probably fractured and migrated pacer lead Initial EKG done did not show any acute ST segment changes, ventricular rate of 64, QRS 105 Patient admitted to medicine service REVIEW OF SYSTEMS: CONSTITUTIONAL: No fever, no malaise, no fatigue. HEENT: No recent visual problems or hearing problems. Denied any sore throat. CARDIOVASCULAR: As mentioned in HPI PULMONARY: No shortness of breath, no cough, no hemoptysis. GASTROINTESTINAL: No diarrhea, no nausea, no vomiting, no abdominal pain. NEUROLOGICAL: No headaches, no weakness, no numbness. HEMATOLOGICAL: Denies any bleeding or petechiae. GENITOURINARY: Denies any burning micturition, frequency, or urgency. MUSCULOSKELETAL/RHEUMATOLOGICAL: Denies any joint pain, swelling, or any muscle pain. ENDOCRINE: Denies any polyuria or polydipsia. The rest of the 14-point review of systems is negative. PHYSICAL EXAMINATION: GENERAL: The patient is alert and oriented x3, not in any acute distress. Well developed, well nourished. HEENT: Pupils are round and equally reacting to light. EOMI. No scleral icterus. No conjunctival pallor. Normocephalic, atraumatic. No pharyngeal erythema. No thyromegaly. CARDIOVASCULAR: S1 and S2 present. No murmurs, rubs, or gallops. PULMONARY: Chest is clear to auscultation, no wheezing or crackles. ABDOMEN: Soft, nontender, nondistended, normoactive bowel sounds. No palpable organomegaly. MUSCULOSKELETAL: No joint swelling or deformity. EXTREMITIES: No cyanosis, clubbing, or pedal edema. NEUROLOGICAL: Gross neurological examination did not reveal any focal deficits. SKIN: No rashes. Assessment and plan Non-ST elevation MS History of prior stroke Hypertension history of CABG Monitor vital signs Monitor CBC Monitor CMP Continue telemetry monitoring Trend troponin Continue pharmacy dose heparin Ordered 2-D echo Ordered lipid panel Ordered HbA1c level Consult cardiology Labs and medication were reviewed.. Continue same treatment. Continue with symptomatic treatment. Resume home medication. Monitor labs and vitals. DVT and GI prophylaxis. Further recommendations as per clinical course of the patient Past Medical History Past Medical History: CVA/TIA, Hypertension, Myocardial Infarction ([place]) Last Myocardial Infarction Date:: 2009 History of Any Multi-Drug Resistant Organisms: None Reported Past Surgical History: Coronary Bypass/CABG, Heart Catheterization With Stent Additional Past Surgical History / Comment(s): CABG x3, loop recorder 2019 Past Anesthesia/Blood Transfusion Reactions: No Reported Reaction Date of Last Stent Placement:: 2009 Past Psychological History: No Psychological Hx Reported Smoking Status: Never smoker Past Alcohol Use History: None Reported Past Drug Use History: None Reported Medications and Allergies Home Medications Medication Instructions Recorded Confirmed Type Ascorbic Acid [Vitamin C] 1,000 mg PO DAILY 08/17/20 03/19/23 History Aspirin EC [Ecotrin] 81 mg PO DAILY 08/17/20 03/19/23 History Vitamin A [Vitamin A (8,000 Units 8,000 unit PO DAILY 08/17/20 03/19/23 History = 2,400 MCG)] Metoprolol Tartrate [Lopressor] 50 mg PO BID 03/18/23 03/19/23 History Cholecalciferol [Vitamin D3 (25 25 mcg PO DAILY 03/19/23 03/19/23 History Mcg = 1000 Iu)] Allergies Allergy/AdvReac Type Severity Reaction Status Date / Time Penicillins Allergy Rash/Hives Verified 03/19/23 12:21 Physical Exam Vitals: Vital Signs Temp Pulse Pulse Resp BP BP BP 03/19/23 04:00 98.7 F 66 18 156/84 03/19/23 01:33 66 18 03/18/23 23:20 99.0 F 66 18 188/94 179/97 03/18/23 22:43 65 18 172/92 03/18/23 21:40 68 18 171/92 03/18/23 20:36 64 16 181/90 03/18/23 20:03 98.4 F 74 18 152/82 Pulse Ox 03/19/23 04:00 96 03/19/23 01:33 03/18/23 23:20 97 03/18/23 22:43 98 03/18/23 21:40 98 03/18/23 20:36 97 03/18/23 20:03 100 Intake and Output 03/18/23 03/19/23 03/19/23 22:59 06:59 14:59 Intake Total 30.383 Balance 30.383 Intake: IV 10 0.9 10 Intake, IV Titration 20.383 Amount Heparin Sod,Pork in 0.45% 20.383 NaCl 25,000 unit In 0.45 % NaCl 1 250ml.bag @ 12 UNITS/KG/HR 8.927 mls/hr IV .Q24H [facility] Rx#: [id number] Other: Voiding Method Toilet # Voids 1 Weight 74.389 kg 74.389 kg Results CBC & Chem 7: 03/19/23 07:45 03/18/23 20:49 Labs: Abnormal Lab Results - Last 24 Hours (Table) 03/18/23 03/18/23 03/19/23 Range/Units 20:49 22:51 00:40 APTT 128.6 H* (22.0-30.0) sec Troponin I 0.160 H* 0.597 H* (0.000-0.034) ng/mL 03/19/23 Range/Units 04:09 APTT (22.0-30.0) sec Troponin I 1.320 H* (0.000-0.034) ng/mL Thrombosis Risk Factor Assmnt - Choose All That Apply Any of the Below Risk Factors Present?: No Other Risk Factors: Yes Each Risk Factor Represents 2 Points: Age 61-74 years Other congenital or acquired thrombophilia - If yes, enter type in comment: No Thrombosis Risk Factor Assessment Total Risk Factor Score: 2 Thrombosis Risk Factor Assessment Level: Low Risk
[2023-03-19] MEDS ORDERED: fentaNYL (PF) 50 MCG/ML 2 ML AMP IVP ONE (13:20)
[2023-03-19] MEDS ORDERED: LIDOCAINE 1% INJ 10MG/ML (30 ML VIAL-PF) SQ ONE (13:23)
[2023-03-19] MEDS: HEPARIN SODIUM 1,000 UN/ML (10ML VL) IVP ONE ×2 (13:40→14:28)
[2023-03-19] MEDS ORDERED: TICAGRELOR 90 MG TAB ONE (13:41)
[2023-03-19] MEDS ORDERED: TICAGRELOR 90 MG TAB PO ONE (13:42)
[2023-03-19] MEDS ORDERED: IOPAMIDOL-370 100ML BTL INJ ONE ×3 (13:43→14:22)
[2023-03-19] MEDS ORDERED: NITROGLYCERIN 1000MCG/10ML SYRINGE INTRAARTER ONE (13:52)
[2023-03-19 14:00] LABS: Chol/HDL Ratio 4.92 Ratio; LDL Cholesterol,Calculated 117.8 mg/dL (0.0-131.0)
[2023-03-19] MEDS ORDERED: ZOLPIDEM 5 MG TAB PO PRN (14:39)
[2023-03-19] MEDS ORDERED: MAG HYDROX/AL HYDROX/SIMETH 30 ML CUP PO PRN (14:39)
[2023-03-19] MEDS ORDERED: RX INFO: IV CONTRAST WAS GIVEN 1 EACH MISC MISCELLANE PRN (14:39)
[2023-03-19] MEDS ORDERED: ATROPINE SULFATE 0.1 MG/ML 10ML SYRINGE IV PRN (14:39)
[2023-03-19] MEDS ORDERED: SODIUM CHLORIDE 0.9% 1,000 ML in EMPTY BAG 1 BAG IV SCH (14:45)
--- NOTE | 2023-03-19 14:51 | P.CARDCATH ---
Date of Procedure: 03/19/23 Description of Procedure: Cardiac Catheterization: The patient is a 62-year-old male with a known history of CAD status post CABG and PCI who presented with symptoms of chest discomfort and troponin abnormalities consistent with non-STEMI. Recommendations were made regarding cardiac catheterization, the risks and the complications were discussed with the patient who is in full understanding and agreement. Procedure Description: Patient was brought to laboratory technical specialist in fasting semi-sedated state after receiving Fentanyl and Benadryl achieiving moderate conscious sedated state. Using Xylocaine Anesthesia and Seldinger technique, a 6-[place] sheath was introduced in the right femoral artery . Subsequently, selective coronary angiography was performed using a 6-[place] 4 bend Lc catheter. Multiple views of the coronary artery including hemiaxial views were obtained. The right Lc was used to cannulate the saphenous vein graft to the RCA, radial to the left circumflex and TRAVIS to the LAD, images of the grafts were obtained. The 6-[place] pigtail catheter was used to cross the aortic valve and LVEDP was calculated. PCI: After removing the catheters 6-[place] FL 4 guiding catheter was introduced into system and after cannulating the left main a 0.014 BMW J-wire was positioned in the distal left circumflex, subsequently a 2.5 x 12 mm NC Treck balloon was advanced and inflation at 10 piper were done. Subsequently a 2.75 x 28 mm Xience umair point stent was deployed at 16 piper, after removing the balloon a [employer] intravascular ultrasound catheter was introduced and imaging was obtained. After removing the catheter attempt to advance a 3.5 x 15 mm NC Treck were unsuccessful, the balloon was removed and a 3.5 x 8 mm NC Treck balloon was advanced and inflation and the distal and proximal left main were done at 10 piper, subsequently the balloon was removed and a 6-[place] guide liner was introduced and the 3.5 x 15 mm NC balloon was advanced and inflation in the proximal left circumflex were done at 10 piper. Subsequently a 4.5 x 8 mm NC Treck was advanced and multiple inflations in the left main were done at 10 piper. After removing the balloon repeat intravascular ultrasound was performed. Subsequently the wire was removed and images were obtained and revealed stable successful stenting. Following that, catheter and sheath were removed. Hemostasis was obtained with deployment of an Angio-Seal . There was no immediate complication. Patient was returned to room in stable condition. Of note, the patient received a total of 7000 units of intravenous heparin as well as intra-arterial verapamil. His ACT was followed. He received a loading dose of Brilinta. He had chest discomfort that resolved at the end of the procedure. Findings: Left main: This is a large size vessel, bifurcating into LAD and left circumflex, the distal and mid left main has 60-70% stenosis LAD: This vessel is totally occluded proximally with no antegrade flow Left circumflex: This vessel has a 90% stenosis proximally prior to the takeoff of a small obtuse marginal branch, the distal left circumflex gives collateral to the right PDA and PLV RCA: This vessel is totally occluded proximally with no antegrade flow Saphenous vein graft to the RCA: This vessel is totally occluded proximally with no antegrade flow Radial bypass to the OM: The proximal and distal anastomotic sites are patent. The flow into the distal OM is brisk. The mid body of the graft has a 50% lesion. The rest of the vessel has no high-grade stenosis. TRAVIS to the LAD: The distal anastomotic site is patent. The flow into the LAD is brisk. There is diffuse intimal disease in the LAD and it is of small caliber distally. Left Ventriculogram: Not performed Hemodynamics: There was no gradient across the aortic valve, LVEDP was 16-20 mmHg Conclusion: 1. Chronically occluded proximal LAD and RCA 2. Severe disease in the distal left main and proximal left circumflex 3. Chronically occluded saphenous vein graft to the RCA 4. Patent TRAVIS to the LAD with diffuse disease in the distal [place] vessel 5. Patent radial bypass to the OM was moderate disease in the midsegment 6. Successful stenting of the left main and proximal left circumflex with reduction of stenosis from 90% to less than 5 % with intravascular ultrasound imaging Recommendations: The patient will continue on aspirin and Brilinta for one year without any interruption, in addition aggressive coronary risks modifications. The findings and the recommendations were discussed with the patient and the family and they were in full understanding and agreement. Duration of sedation is 60 minutes.
[2023-03-19 18:27] VITALS: RESP 16
[2023-03-19] MEDS: TICAGRELOR 90 MG TAB PO SCH (20:51)
[2023-03-20] MEDS ORDERED: ATORVASTATIN 40 MG TAB PO SCH (09:00)
[2023-03-20] MEDS ORDERED: ASPIRIN 81 MG PO SCH (09:00)
[2023-03-20] MEDS ORDERED: LOSARTAN 25 MG TAB PO SCH (09:00)
[2023-03-20 09:02] LABS: African American GFR (CKD) >90 (>60 ml/min/1.73 sqM); Anion Gap 10 mmol/L; Blood Urea Nitrogen 16 mg/dL (9-20); Calcium 8.9 mg/dL (8.4-10.2); Carbon Dioxide 23 mmol/L (22-30); Chloride 104 mmol/L (98-107); Glucose 139 mg/dL (74-99); Non-African American GFR(CKD) 89 (>60 ml/min/1.73 sqM); Potassium 4.1 mmol/L (3.5-5.1); Sodium 137 mmol/L (137-145)
[2023-03-20] MEDS: TICAGRELOR 90 MG TAB PO SCH (09:15)
[2023-03-20] MEDS: METOPROLOL TARTRATE 50 MG TAB PO SCH (09:15)
[2023-03-20 11:34] VITALS: BP 124/75; PULSE 55; TEMP 96.5
--- NOTE | 2023-03-20 12:41 | P.PN ---
Subjective Progress Note Date: 03/20/23 History of Present Illness: The patient is a 62-year-old male with a known history of CAD, status post tri ple bypass 20 years ago, stenting of the SVG to the RCA in 2009, history of stroke with residual left-sided weakness who presented with symptoms of not feeling well, elevated blood pressure as well as chest discomfort. He was under increased amount of stress yesterday because of fluttering in his basement but started to have discomfort in the chest which is new to him since the stenting 13 years ago and noted his blood pressure was elevated. He had mild dyspnea, no dizziness or palpitations, no syncope. He denies any PND, orthopnea or peripheral edema. At the time of his stroke he received TPA subsequently is transferred to [place] and received a loop recorder with no documented atrial fib rillation according to him. Activity-garber he has been stable although limited by his left sided weakness. In the emergency room he had elevation of his troponin but no acute ST segment changes on the EKG. He is on IV heparin and pain-free at the time of my evaluation. 03/20 Yesterday, patient underwent cardiac catheterization which revealed chronically occluded proximal LAD and RCA, severe disease in the distal left main and proximal left circumflex, chronically occluded saphenous vein graft to the RCA, patent TRAVIS to the LAD with diffuse disease in the distal [place] vessel, patent radial bypass to the OM moderate disease in the midsection. Patient subsequently underwent successful stenting of the left main and proximal left circumflex. Patient is to continue on aspirin in [place] for 1 year without interruption. Patient states he had one episode during the night of palpitation like sensation that his heart was beating hard but not fast. The episode lasted about 20 minutes. There is no correlation on the telemetry. He denies having chest pain. Blood pressure 124/75, heart rate in the 50s and 70s. Repeat creatinine 0.91 and BUN 16. Echocardiogram has been obtained. Physical Examination: 62-year-old male, alert, oriented no apparent distress Head: Normocephalic. Eyes: Sclerae nonicteric. Neck: Good carotid upstroke, no bruit, no jugular venous distention. Lungs: Clear to auscultation. Heart: Regular rate and rhythm, S1-S2, no S3, no rub. Systolic ejection murmur. Abdomen: Soft nontender, positive bowel sounds no organomegaly. Extremities: No edema, intact distal pulses. Mild left-sided weakness, left radial artery harvested Impression: 1. Non-STEMI in a patient with known history of CAD and prior CABG and PCI status post stenting of the left main and proximal left circumflex 2. History of hypertension 3. History of Covid 4. Prior stroke, no evidence of arrhythmia according to the patient, he has a loop recorder. Plan: Continue patient's current cardiac medications, prescriptions have been sent to his pharmacy Patient is cleared for discharge if there is no significant abnormalities on the echocardiogram. Patient to follow-up with Dr. Francois in the office in one week. Nurse practitioner note has been reviewed, I agree with the documented findings and plan of care. Patient was seen and examined. Objective - Vital Signs Vital signs: Vital Signs Temp 97.8 F 03/20/23 08:00 Pulse 70 03/20/23 08:00 Resp 16 03/20/23 08:00 BP 150/71 03/20/23 08:00 Pulse Ox 93 L 03/20/23 08:25 FiO2 Intake & Output 03/19/23 03/20/23 03/20/23 18:59 06:59 18:59 Intake Total 100 690 118 Output Total 300 Balance 100 390 118 Intake: IV 100 Intake, IV Titration 450 Amount Sodium Chloride 0.9% 1, 450 000 ml In Empty Bag 1 bag @ 1 ML/KG/HR 74.389 mls/ hr IV .[id number] Rx#: [id number] Oral 240 118 Output: Urine 300 Other: Voiding Method Toilet Toilet # Voids 2 - Labs CBC & Chem 7: 03/19/23 07:45 03/20/23 07:46 Labs: Abnormal Lab Results - Last 24 Hours (Table) 03/19/23 03/20/23 Range/Units 04:09 07:46 Glucose 139 H (74-99) mg/dL Triglycerides 184.00 H (0.00-149.00) mg/dL HDL Cholesterol 39.40 L (40.00-60.00) mg/dL
--- NOTE | 2023-03-20 13:25 | P.DS ---
Providers Date of admission: 03/18/23 21:51 Expected date of discharge: 03/20/23 Attending physician: Marilynn Max Consults: 03/18/23 21:51 Consult Physician Routine Consulting Provider: Stefan Gu Consult Reason/Comments: NSTEMI Do you want consulting provider notified?: Yes, Notify in am 03/19/23 14:39 Consult Physician Routine Consulting Provider: Stefan Gu Consult Reason/Comments: Post Interventional Patient Do you want consulting provider notified?: Already Contacted Primary care physician: Cristo Goldman [facility] Course: Discharge diagnoses; Non-ST elevation NC History of prior stroke Hypertension Hyperlipidemia history of CABG Hospital course; 62-year-old gentleman with past medical history significant for coronary disease status post CABG, hypertension, CVA in the ER because of elevated blood pressure and chest pain. Patient stated that he noticed that for the last cou ple of days she has been having increasing blood pressure, it was associated with chest pressure, was central in location, persistent, nonradiating, no aggravating or relieving factors associated with this chest pressure. Denies any shortness of breath. Denies any palpitation. No orthopnea or PND. Because of Persistent chest pressure patient came to the ER Initial lab work done in the ER showed WBC 6.5, hemoglobin 10.3, platelet count 267, sodium 138, potassium 4.1, BUN 14, creatinine 0.89, AST 26, ALT 22, troponin 0.160 Chest x-ray done showed whire fragment projecting at the base of the heart probably fractured and migrated pacer lead Initial EKG done did not show any acute ST segment changes, ventricular rate of 64, QRS 105 Patient admitted to medicine service 03/20. Patient seen and examined cardiac cath done yesterday patient underwent Successful stenting of the left main and proximal left circumflex with reduction of stenosis from 90% to less than 5 % with intravascular ultrasound imaging Cardiology cleared the patient for discharge on dual antiplatelet therapy PHYSICAL EXAMINATION: GENERAL: The patient is alert and oriented x3, not in any acute distress. Well developed, well nourished. HEENT: Pupils are round and equally reacting to light. EOMI. No scleral icterus. No conjunctival pallor. Normocephalic, atraumatic. No pharyngeal erythema. No thyromegaly. CARDIOVASCULAR: S1 and S2 present. No murmurs, rubs, or gallops. PULMONARY: Chest is clear to auscultation, no wheezing or crackles. ABDOMEN: Soft, nontender, nondistended, normoactive bowel sounds. No palpable organomegaly. MUSCULOSKELETAL: No joint swelling or deformity. EXTREMITIES: No cyanosis, clubbing, or pedal edema. NEUROLOGICAL: Gross neurological examination did not reveal any focal deficits. SKIN: No rashes. Patient Condition at Discharge: Stable Plan - Discharge Summary Discharge Rx Participant: No New Discharge Prescriptions: New Ticagrelor [Brilinta] 90 mg PO BID #180 tab Losartan [Cozaar] 25 mg PO DAILY #90 tab Atorvastatin [Lipitor] 40 mg PO DAILY #90 tab Nitroglycerin Sl Tabs [Nitrostat] 0.4 mg SUBLINGUAL Q5M PRN #25 tab PRN Reason: Chest Pain Continue Aspirin EC [Ecotrin] 81 mg PO DAILY Vitamin A [Vitamin A (8,000 Units = 2,400 MCG)] 8,000 unit PO DAILY Ascorbic Acid [Vitamin C] 1,000 mg PO DAILY Metoprolol Tartrate [Lopressor] 50 mg PO BID Cholecalciferol [Vitamin D3 (25 Mcg = 1000 Iu)] 25 mcg PO DAILY Discharge Medication List Ascorbic Acid [Vitamin C] 1,000 mg PO DAILY 08/17/20 [History] Aspirin EC [Ecotrin] 81 mg PO DAILY 08/17/20 [History] Vitamin A [Vitamin A (8,000 Units = 2,400 MCG)] 8,000 unit PO DAILY 08/17/20 [History] Metoprolol Tartrate [Lopressor] 50 mg PO BID 03/18/23 [History] Cholecalciferol [Vitamin D3 (25 Mcg = 1000 Iu)] 25 mcg PO DAILY 03/19/23 [History] Atorvastatin [Lipitor] 40 mg PO DAILY #90 tab 03/20/23 [Rx] Losartan [Cozaar] 25 mg PO DAILY #90 tab 03/20/23 [Rx] Nitroglycerin Sl Tabs [Nitrostat] 0.4 mg SUBLINGUAL Q5M PRN #25 tab 03/20/23 [Rx] Ticagrelor [Brilinta] 90 mg PO BID #180 tab 03/20/23 [Rx] Follow up Appointment(s)/Referral(s): Adam Francois MD [STAFF PHYSICIAN] - 1 Week ([facility]. The office will call you with appointment date and time.) Cristo Goldman DO [Primary Care Provider] - 1-2 days Discharge Disposition: HOME SELF-CARE
[2023-03-20 13:29] VITALS: BMI 25.7
--- NOTE | 2023-03-20 15:41 | CA ---
Transthoracic Echo Report Name: Jones Miranda Age: 62 Gender: M : 1960 Exam Date: 03/20/2023 09:29 Exam Location: [place] [facility] Ht (in): 67 Wt (lb): 164 Ordering Physician: Edgardo Diaz MD Attending/Referring Phys: Band Cutter Aurea Fuentes [facility] Procedure CPT: Indications: Slurred speech, CVA Cardiac Hx: Technical Quality: Fair Contrast 1: Total Dose (mL): Contrast 2: Total Dose (mL): MEASUREMENTS (Male / Female) Normal Values 2D ECHO LV Diastolic Diameter PLAX 4.8 cm 4.2 - 5.9 / 3.9 - 5.3 cm LV Systolic Diameter PLAX 3.7 cm IVS Diastolic Thickness 0.9 cm 0.6 - 1.0 / 0.6 - 0.9 cm LVPW Diastolic Thickness 0.9 cm 0.6 - 1.0 / 0.6 - 0.9 cm LV Relative Wall Thickness 0.4 LVOT Diameter 2.0 cm Ascending Aorta Diameter 3.8 cm M-MODE Aortic Root Diameter MM 3.4 cm LA Systolic Diameter MM 3.5 cm LA Ao Ratio MM 1.0 AV Cusp Separation MM 2.1 cm DOPPLER AV Peak Velocity 136.0 cm/s AV Peak Gradient 7.4 mmHg AV Mean Velocity 103.6 cm/s AV Mean Gradient 4.6 mmHg AV Velocity Time Integral 27.6 cm AI Peak Velocity 452.4 cm/s AI Peak Gradient 81.9 mmHg AI Pressure Half Time 733.6 ms LVOT Peak Velocity 134.5 cm/s LVOT Peak Gradient 7.2 mmHg LVOT Velocity Time Integral 24.9 cm LVOT Stroke Volume 79.6 cm??? LVOT Stroke Volume Index 42.9 ml/m??? LVOT Cardiac Index 2659.0 cm???/min???m??? AV Area Cont Eq vti 2.9 cm??? AV Area Cont Eq pk 3.2 cm??? Mitral E Point Velocity 51.8 cm/s Mitral A Point Velocity 80.8 cm/s Mitral E to A Ratio 0.6 MV Deceleration Time 226.9 ms LV E' Lateral Velocity 9.1 cm/s Mitral E to LV E' Lateral Ratio 5.7 LV E' Septal Velocity 6.1 cm/s Mitral E to LV E' Septal Ratio 8.5 TR Peak Velocity 192.8 cm/s TR Peak Gradient 14.9 mmHg Right Atrial Pressure 3.0 mmHg Pulmonary Artery Systolic Pressu 17.9 mmHg Right Ventricular Systolic Press 19.9 mmHg FINDINGS Left Ventricle Normal Left ventricular cavity size. Normal Left ventricular wall thickness and systolic function with no obvious regional wall motion abnormalities. Left ventricular ejection fraction is estimated at 55-60%. Right Ventricle Normal right ventricular size and function. Right Atrium Normal right atrial size. Left Atrium Normal left atrial size. Mitral Valve Structurally normal mitral valve. Trace mitral regurgitation. Aortic Valve Trileaflet aortic valve. No aortic valve stenosis. Moderate aortic regurgitation. Tricuspid Valve Structurally normal tricuspid valve. Trace tricuspid regurgitation. Pulmonic Valve Structurally normal pulmonic valve. Moderate pulmonic regurgitation. Pericardium No pericardial effusion. Aorta Normal size aortic root. Aorta at upper limits of normal. CONCLUSIONS Normal LV size, wall thickness and systolic function, LVEF is estimated at 55- 60% No obvious regional wall motion abnormality Moderate aortic regurgitation and moderate pulmonic regurgitation No prior echo to compare with Previewed by: Dr Ric Ware (Electronically Signed) Final Date: 20 March 2023 15:40
== END 2023-03-20 14:32 | disposition home or self-care (01) | DRG 247 ==
LOC: EC 19:42 → 3SCARD 21:51
PROVIDERS: ADMIT Internal Medicine; ATTEND Internal Medicine
PROC: B2111ZZ Fluoroscopy of Multiple Coronary Arteries using Low Osmolar Contrast (ICD-10-PCS; principal; 2023-03-19 12:41)
PROC: B2181ZZ Fluoroscopy of Left Internal Mammary Bypass Graft using Low Osmolar Contrast (ICD-10-PCS; principal; 2023-03-19 12:41)
PROC: B240ZZ3 Ultrasonography of Single Coronary Artery, Intravascular (ICD-10-PCS; principal; 2023-03-19 12:41)
PROC: B2131ZZ Fluoroscopy of Multiple Coronary Artery Bypass Grafts using Low Osmolar Contrast (ICD-10-PCS; principal; 2023-03-19 12:41)
PROC: 0271346 Dilation of Coronary Artery, Two Arteries, Bifurcation, with Drug-eluting Intraluminal Device, Percutaneous Approach (ICD-10-PCS; principal; 2023-03-19 12:41)
PROC: 4A023N7 Measurement of Cardiac Sampling and Pressure, Left Heart, Percutaneous Approach (ICD-10-PCS; principal; 2023-03-19 12:41)
DX: I21.4 Non-ST elevation (NSTEMI) myocardial infarction (principal); I25.810 Atherosclerosis of coronary artery bypass graft(s) without angina pectoris; I69.354 Hemiplegia and hemiparesis following cerebral infarction affecting left non-dominant side; Z28.310 Unvaccinated for COVID-19; I25.10 Atherosclerotic heart disease of native coronary artery without angina pectoris; I10 Essential (primary) hypertension; E78.5 Hyperlipidemia, unspecified; I25.2 Old myocardial infarction; Z79.82 Long term (current) use of aspirin; Z79.899 Other long term (current) drug therapy; Z95.1 Presence of aortocoronary bypass graft; Z95.5 Presence of coronary angioplasty implant and graft; Z86.16 Personal history of COVID-19; Z88.0 Allergy status to penicillin
CPT/HCPCS: 36415; 71046; 80048; 80053; 80061; 83036; 83735; 84484; 85025; 85610; 85730; 92978; 93005; 93306; 93459; 94760; 96365; 99285

== ENCOUNTER → 2023-04-14 | Outpatient (CLI) | payer MEDICARE ==
[2023-04-14 16:07] LABS: Blood Urea Nitrogen 17.7 mg/dL (9.0-27.0); Chloride 99 mmol/L (96-109); Potassium 4.4 mmol/L (3.5-5.5); Sodium 138 mmol/L (135-145)
== END | disposition home or self-care (01) ==
LOC: LABWHC1 08:31
PROVIDERS: ATTEND Internal Medicine Interventional Cardiology
DX: I10 Essential (primary) hypertension (principal)
CPT/HCPCS: 36415; 80051; 82565; 84520

== ENCOUNTER 2023-05-05 07:43 | Day surgery (SDC) | payer MEDICARE ==
[~2023-05-05 07:43] MED LIST: ALPRAZolam 0.25 MG TAB PO PRN; ALPRAZolam 0.5 MG TAB PO PRN; ASPIRIN 325 MG TAB PO ONE; ATORVASTATIN 80 MG TAB PO ONE; HEPARIN SODIUM,PORCINE (1 ML) 2,500 UNIT in SODIUM CHLORIDE 0.9% 250 ML IRRIGATION PRN; HEPARIN SODIUM,PORCINE 10,000 UNIT in SODIUM CHLORIDE 0.9% 1,000 ML IRRIGATION PRN; NITROGLYCERIN SL TABS 0.4 MG TAB SUBLINGUAL PRN
[2023-05-05] MEDS: SODIUM CHLORIDE 0.9% 1,000 ML in EMPTY BAG 1 BAG IV SCH (08:01)
[2023-05-05 08:10] LABS: Basophils % (A) 0 %; Eosinophils # (A) 0.4 k/uL (0-0.7); Eosinophils % (A) 5 %; HCT 48.1 % (39.0-53.0); Lymphocytes # (A) 1.4 k/uL (1.0-4.8); Lymphocytes % (A) 20 %; MCH 29.8 pg (25.0-35.0); MCHC 33.3 g/dL (31.0-37.0); MCV 89.6 fL (80.0-100.0); Mean Platelet Volume 7.5; Monocytes # (A) 0.5 k/uL (0-1.0); Monocytes % (A) 8 %; Neutrophils # (A) 4.3 k/uL (1.3-7.7); Neutrophils % (A) 64 %; Platelet Count 302 k/uL (150-450); RBC 5.37 m/uL (4.30-5.90); RDW 13.8 % (11.5-15.5); WBC 6.7 k/uL (3.8-10.6)
[2023-05-05] MEDS ORDERED: LIDOCAINE 1% INJ 10MG/ML (20 ML MDV) ONE (09:18)
[2023-05-05] MEDS ORDERED: VERAPAMIL 2.5 MG/ML 2 ML AMP ONE (09:18)
[2023-05-05] MEDS ORDERED: fentaNYL (PF) 50 MCG/ML 2 ML AMP ONE (09:37)
[2023-05-05] MEDS ORDERED: HEPARIN SODIUM 1,000 UN/ML (10ML VL) ONE (09:38)
[2023-05-05] MEDS ORDERED: fentaNYL (PF) 50 MCG/ML 2 ML AMP IVP ONE (10:07)
[2023-05-05] MEDS ORDERED: LIDOCAINE 1% INJ 10MG/ML (20 ML MDV) SQ ONE (10:10)
[2023-05-05] MEDS: HEPARIN SODIUM 1,000 UN/ML (10ML VL) IV ONE ×2 (10:29→10:43)
[2023-05-05] MEDS ORDERED: IOPAMIDOL-370 100ML BTL INJ ONE ×2 (10:43→10:50)
[2023-05-05] MEDS ORDERED: NITROGLYCERIN 1000MCG/10ML SYRINGE INTRACORON ONE (10:49)
[2023-05-05] MEDS ORDERED: MAG HYDROX/AL HYDROX/SIMETH 30 ML CUP PO PRN (11:10)
[2023-05-05] MEDS ORDERED: RX INFO: IV CONTRAST WAS GIVEN 1 EACH MISC MISCELLANE PRN (11:10)
[2023-05-05] MEDS ORDERED: ZOLPIDEM 5 MG TAB PO PRN (11:10)
[2023-05-05] MEDS ORDERED: NITROGLYCERIN SL TABS 0.4 MG TAB SUBLINGUAL PRN (11:10)
[2023-05-05] MEDS ORDERED: ATROPINE SULFATE 0.1 MG/ML 10ML SYRINGE IV PRN (11:10)
[2023-05-05] MEDS ORDERED: SODIUM CHLORIDE 0.9% 1,000 ML in EMPTY BAG 1 BAG IV SCH (11:15)
--- NOTE | 2023-05-05 11:20 | P.CARDCATH ---
Date of Procedure: 05/05/23 Description of Procedure: Cardiac Catheterization: The patient is a 62-year-old male with a known history of CAD, status post CABG and PCI who underwent stenting of the left main and left circumflex in March 2023. He had obstructive disease involving the radial bypass to the OM. He has continued to have symptoms of chest discomfort and had an abnormal MPI. Recommendations were made regarding cardiac catheterization, the risks and the complications were discussed with the patient who is in full understanding and agreement. Procedure Description: Patient was brought to nursery laborer in fasting semi-sedated state after receiving Fentanyl and Benadryl achieiving moderate conscious sedated state. Using Xyl ocaine Anesthesia and Seldinger technique, a 6-[place] sheath was introduced in the right femoral artery using micropuncture technique. Subsequently, selective coronary angiography was performed using a 6-[place] 4 bend Lc catheter. Multiple views of the coronary artery including hemiaxial views were obtained. The right Lc was used to cannulate the radial bypass to the obtuse marginal branch. The right Lc catheter was used to cross the aortic valve and LVEDP was calculated. PCI: After removing the catheters a 6-[place] FR 4 guiding catheter was used to cannulate the ostium of the graft, a 0.014 BMW J-wire was advanced and positioned distally. Subsequently 3.0 x 12 mm NC Treck was positioned across the lesion and inflation at 8 piper was done. After removing the balloon 3.25 x 18 mm Xience umair point stent was deployed at 16 piper. After removing the wire images were obtained and revealed stable successful stenting. Following that, catheter and sheath were removed. Hemostasis was obtained with deployment of an Angio-Seal. There was no immediate complication. Patient was returned to room in stable condition. Of note, the patient received a total of 6 units of intrave nous heparin, he was continued on Brilinta. His ACT was monitored. He had no chest discomfort or significant EKG changes with the inflations. Findings: Left main: This is a large size vessel, bifurcating into LAD and left circumflex, the stent in the left main is patent with no evidence of restenosis LAD: This vessel is totally occluded proximally with no antegrade flow. Left circumflex: This is a nondominant vessel the stented segment proximally is patent. The obtuse marginal branch is chronically occluded proximally distally the vessel gives collaterals to the right PDA and PLV. There is no evidence of in-stent restenosis. There is diffuse intimal disease in the distal small obtuse marginal branch RCA: This vessel is totally occluded proximally with no antegrade flow Radial artery bypass to the obtuse marginal branch: The proximal and distal anastomotic sites are patent. The mid body of the graft has 70-80% eccentric stenosis Left Ventriculogram: Not performed Hemodynamics: There was no gradient across the aortic valve, LVEDP was 16-20 mmHg Conclusion: 1. Patent stent in the left main and proximal left circumflex 2. Chronically occluded proximal LAD and RCA 3. Significant disease in the body of the radial bypass to the obtuse marginal branch 4. Successful stenting of the radial artery bypass to the obtuse margin branch with reduction of stenosis from 70-80% to 0% Recommendations: The patient will continue on aspirin and Brilinta for 6 months without any interruption in addition to aggressive coronary risks modifications. The findings and the recommendations were discussed with the patient and the family and they were in full understanding and agreement. Duration of sedation is 45 minutes.
[2023-05-05 13:20] VITALS: RESP 16
[2023-05-05 14:40] VITALS: BMI 27.0
[2023-05-05] MEDS: TICAGRELOR 90 MG TAB PO SCH (21:04)
[2023-05-05] MEDS: LOSARTAN 25 MG TAB PO SCH (21:04)
[2023-05-05] MEDS: METOPROLOL TARTRATE 25 MG TAB PO SCH (21:05)
[2023-05-06] MEDS: SODIUM CHLORIDE 0.9% 1,000 ML in EMPTY BAG 1 BAG IV SCH ×2 (03:26→07:36)
[2023-05-06 07:28] LABS: African American GFR (CKD) >90 (>60 ml/min/1.73 sqM); Anion Gap 6 mmol/L; Blood Urea Nitrogen 13 mg/dL (9-20); Calcium 8.8 mg/dL (8.4-10.2); Carbon Dioxide 22 mmol/L (22-30); Chloride 108 mmol/L (98-107); Glucose 104 mg/dL (74-99); Non-African American GFR(CKD) >90 (>60 ml/min/1.73 sqM); Potassium 4.2 mmol/L (3.5-5.1); Sodium 136 mmol/L (137-145)
[2023-05-06 08:31] VITALS: BP 155/90; PULSE 52; TEMP 98.2
[2023-05-06] MEDS: METOPROLOL TARTRATE 25 MG TAB PO SCH (08:45)
[2023-05-06] MEDS: LOSARTAN 25 MG TAB PO SCH (08:46)
[2023-05-06] MEDS: TICAGRELOR 90 MG TAB PO SCH (08:46)
[2023-05-06] MEDS ORDERED: ASPIRIN 81 MG PO SCH (09:00)
[2023-05-06] MEDS ORDERED: ISOSORBIDE MONONITRATE ER 30 MG TAB.ER.24H PO SCH (09:00)
--- NOTE | 2023-05-06 12:20 | P.DS ---
Providers Date of admission: 05/05/2023 Expected date of discharge: 05/06/23 Attending physician: Adam Francois Consults: 05/05/23 11:10 Consult Physician Routine Consulting Provider: [facility] Consult Reason/Comments: Post Interventional patient Do you want consulting provider notified?: Already Contacted Primary care physician: Cristo Goldman [facility] Course: This is a pleasant 62-year-old male with history of CAD, status post CABG and PCI who underwent stenting of the left main and circumflex in March 2023 and had obstructive disease involving the radial bypass to the OM. He continued to have symptoms of chest discomfort and had an abnormal MPI and recommendations were made regarding cardiac catheterization. He underwent cardiac catheterization yesterday, 05/05/2023, that revealed patent stent in the left main and proximal left circumflex, chronically occluded proximal LAD and RCA with significant disease in the body of the radial bypass obtuse marginal branch. He subsequently underwent successful stenting of the radial artery bypass graft. Overall he is feeling well. He said no symptoms of chest discomfort. His breathing is stable he has no edema. PHYSICAL EXAMINATION: HEENT: Head is atraumatic, normocephalic. Pupils equal, round. Neck is supple. There is no elevated jugular venous pressure. HEART EXAMINATION: Heart sounds regular, S1 and S2 normal. No murmur or gallop heard. CHEST EXAMINATION: Lungs are clear to auscultation and precussion. No chest wall tenderness is noted on palpation or with deep breathing. ABDOMEN: Soft, nontender. Bowel sounds are heard. No organomegaly noted. EXTREMITIES: 2+ peripheral pulses with no evidence of peripheral edema and no calf tenderness noted. Right femoral puncture site clean dry and intact with no ecchymosis, very small hematoma noted but no bruit. NEUROLOGIC patient is awake, alert and oriented x3. ASSESSMENT 1 CAD status post CABG and stenting of the left main an dproximal left circumflex in March and ending of the radial artery graft to the obtuse marginal branch this admission #2 hypertension 3 hyperlipidemia, intolerant to statins and zetia, working on authorization for PCSK9-inhibitor as an outpatient 4 history of CVA PLAN The patient will be discharged home today. Continue dual antiplatelet therapy. He will follow-up in the office in about a week. SALES DEVELOPER note has been reviewed, I agree with a documented findings and plan of care. Patient was seen and examined. Plan - Discharge Summary Discharge Rx Participant: Yes New Discharge Prescriptions: Continue Vitamin A [Vitamin A (8,000 Units = 2,400 MCG)] 8,000 unit PO DAILY Ascorbic Acid [Vitamin C] 1,000 mg PO BID Metoprolol Tartrate [Lopressor] 25 mg PO BID Cholecalciferol [Vitamin D3 (25 Mcg = 1000 Iu)] 25 mcg PO DAILY Ticagrelor [Brilinta] 90 mg PO BID #180 tab Losartan [Cozaar] 25 mg PO BID Aspirin [Adult Low Dose Aspirin EC] 2 tab PO DAILY Isosorbide Mononitrate ER [Imdur] 30 mg PO DAILY Nitroglycerin Sl Tabs [Nitrostat] 0.4 mg SUBLINGUAL Q5M PRN #25 tab PRN Reason: Chest Pain Discharge Medication List Ascorbic Acid [Vitamin C] 1,000 mg PO BID 08/17/20 [History] Vitamin A [Vitamin A (8,000 Units = 2,400 MCG)] 8,000 unit PO DAILY 08/17/20 [History] Metoprolol Tartrate [Lopressor] 25 mg PO BID 03/18/23 [History] Cholecalciferol [Vitamin D3 (25 Mcg = 1000 Iu)] 25 mcg PO DAILY 03/19/23 [History] Nitroglycerin Sl Tabs [Nitrostat] 0.4 mg SUBLINGUAL Q5M PRN #25 tab 03/20/23 [Rx] Ticagrelor [Brilinta] 90 mg PO BID #180 tab 03/20/23 [Rx] Aspirin [Adult Low Dose Aspirin EC] 2 tab PO DAILY 05/01/23 [History] Losartan [Cozaar] 25 mg PO BID 05/01/23 [History] Isosorbide Mononitrate ER [Imdur] 30 mg PO DAILY 05/05/23 [History] Follow up Appointment(s)/Referral(s): Adam Francois MD [STAFF PHYSICIAN] - 1 Week (APPOINTMENT MADE ON @ 3:15PM ) Patient Instructions/Handouts: Moderate Sedation (DC), After Radial Heart Catheterization (GEN) Activity/Diet/Wound Care/Special Instructions: *NO LIFTING, PUSHING, OR PULLING ANYTHING OVER 5 POUNDS FOR 5 DAYS *NO DRIVING FOR 3 DAYS *YOU CAN REMOVE YOUR DRESSING AND SHOWER TOMORROW BUT DO NOT SUBMERSE YOUR PUNCTURE SITE IN WATER FOR A FEW DAYS TO PREVENT INFECTION - SO NO TUB BATHS, POOLS, HOT TUBS, DISHES....ETC *ANY SIGNS OF BLEEDING (HARDNESS, SWELLING, OR EXCESSIVE BRUISING) HOLD DIRECT PRESSURE ON YOUR PUNCTURE SITE AND COME TO THE NEAREST EMERGENCY ROOM TO GET YOUR PUNCTURE SITE LOOKED AT - DO NOT DRIVE YOURSELF! EITHER CALL EMS OR HAVE SOMEONE DRIVE YOU!
== END 2023-05-06 13:48 | disposition home or self-care (01) ==
LOC: CATHCVL 07:43 → 6NMEDSUR 10:55 → CATHCVL 05-06 13:48
PROVIDERS: ATTEND Internal Medicine Interventional Cardiology
DX: I25.10 Atherosclerotic heart disease of native coronary artery without angina pectoris (principal); I10 Essential (primary) hypertension; E78.5 Hyperlipidemia, unspecified; Z88.5 Allergy status to narcotic agent; Z88.0 Allergy status to penicillin; Z79.899 Other long term (current) drug therapy
CPT/HCPCS: 80048; 85025; 93458; J2001; J3010; J1644; Q9967; J2305; 93459

== ENCOUNTER → 2023-07-21 | Outpatient (CLI) | payer MEDICARE ==
[2023-07-21 15:53] LABS: ALT 19 U/L (10-49); AST 15 U/L (14-35); Albumin 4.2 g/dL (3.8-4.9); Albumin/Globulin Ratio 1.83 Ratio (1.60-3.17); Alkaline Phosphatase 70 U/L (41-126); Calcium 9.8 mg/dL (8.7-10.3); Carbon Dioxide 26.2 mmol/L (21.6-31.8); Chloride 102 mmol/L (96-109); Chol/HDL Ratio 6.09 Ratio; Globulin 2.3 g/dL (1.6-3.3); Glucose 83 mg/dL (70-110); LDL Cholesterol,Calculated 94.2 mg/dL (0.0-131.0); Potassium 4.9 mmol/L (3.5-5.5); Sodium 138 mmol/L (135-145); Total Bilirubin 0.9 mg/dL (0.3-1.2); Total Protein 6.5 g/dL (6.2-8.2)
== END | disposition home or self-care (01) ==
LOC: LABWHC1 08:22
PROVIDERS: ATTEND Internal Medicine Interventional Cardiology
DX: E78.2 Mixed hyperlipidemia (principal)
CPT/HCPCS: 36415; 80053; 80061

== ENCOUNTER → 2023-08-21 | Outpatient (CLI) | payer MEDICARE ==
[2023-08-21 19:47] LABS: Basophils # (A) 0.02 X 10*3/uL (0.00-0.10); Basophils % (A) 0.3 %; Eosinophils # (A) 0.31 X 10*3/uL (0.04-0.35); Eosinophils % (A) 4.3 %; HCT 49.7 % (39.6-50.0); HGB 16.4 g/dL (13.0-17.0); Lymphocytes # (A) 1.08 X 10*3/uL (0.90-5.00); MCH 29.4 pg (27.0-32.0); MCV 89.2 FL (80.0-97.0); Monocytes # (A) 0.87 X 10*3/uL (0.20-1.00); Monocytes % (A) 12.1 %; NRBC Per 100 WBC 0 X 10*3/uL (0.00-0.01); Neutrophils # (A) 4.92 X 10*3/uL (1.80-7.70); Neutrophils % (A) 68.2 %; Platelet Count 275 X 10*3/uL (140-440); RBC 5.57 X 10*6/uL (4.40-5.60); RDW 13.8 % (11.5-14.5); WBC 7.21 X 10*3/uL (4.50-10.00)
== END | disposition home or self-care (01) ==
LOC: LABWHC1 14:53
PROVIDERS: ATTEND Family Medicine
DX: Z00.00 Encounter for general adult medical examination without abnormal findings (principal); I10 Essential (primary) hypertension; I62.9 Nontraumatic intracranial hemorrhage, unspecified; I20.9 Angina pectoris, unspecified; E78.5 Hyperlipidemia, unspecified
CPT/HCPCS: 36415; 82024; 83036; 85025

== ENCOUNTER → 2023-08-22 | Outpatient (CLI) | payer MEDICARE ==
[2023-08-22 11:51] LABS: T4, Free (Free Thyroxine) 1.07 ng/dL (0.78-2.19)
[2023-08-22 20:37] LABS: PSA Annual Screen 1.07 ng/mL (0.000-4.000)
== END | disposition home or self-care (01) ==
LOC: LABWHC1 10:50
PROVIDERS: ATTEND Family Medicine
DX: Z00.00 Encounter for general adult medical examination without abnormal findings (principal); I10 Essential (primary) hypertension; I67.9 Cerebrovascular disease, unspecified; I20.9 Angina pectoris, unspecified; E78.5 Hyperlipidemia, unspecified
CPT/HCPCS: 84439; 82533; 84443; 36415; G0103

== ENCOUNTER → 2023-11-14 | Outpatient (CLI) | payer MEDICARE ==
[2023-11-14 16:34] LABS: Basophils # (A) 0.03 X 10*3/uL (0.00-0.10); Basophils % (A) 0.6 %; Eosinophils # (A) 0.24 X 10*3/uL (0.04-0.35); Eosinophils % (A) 4.6 %; HCT 51.5 % (39.6-50.0); HGB 16.9 g/dL (13.0-17.0); Lymphocytes # (A) 1.01 X 10*3/uL (0.90-5.00); Lymphocytes % (A) 19.4 %; MCH 28.9 pg (27.0-32.0); MCHC 32.8 g/dL (32.0-37.0); MCV 88.2 FL (80.0-97.0); Mean Platelet Volume 9.8 FL (9.5-12.2); Monocytes % (A) 11.5 %; NRBC Per 100 WBC 0 X 10*3/uL (0.00-0.01); Neutrophils # (A) 3.31 X 10*3/uL (1.80-7.70); Neutrophils % (A) 63.5 %; Platelet Count 255 X 10*3/uL (140-440); RBC 5.84 X 10*6/uL (4.40-5.60); RDW 13.7 % (11.5-14.5); WBC 5.21 X 10*3/uL (4.50-10.00)
[2023-11-14 16:37] LABS: Homocysteine 5.78 UMOL/L (4.00-14.00)
[2023-11-14 16:45] LABS: Erythrocyte Sedimentation Rate 8 mm/Hr (0-20)
[2023-11-14 16:52] LABS: ALT 23 U/L (10-49); AST 21 U/L (14-35); Albumin 4.5 g/dL (3.8-4.9); Albumin/Globulin Ratio 1.73 Ratio (1.60-3.17); Alkaline Phosphatase 78 U/L (41-126); Blood Urea Nitrogen 13.5 mg/dL (9.0-27.0); Calcium 9.7 mg/dL (8.7-10.3); Carbon Dioxide 26.3 mmol/L (21.6-31.8); Chloride 103 mmol/L (96-109); GGT 13 U/L (0-73); Globulin 2.6 g/dL (1.6-3.3); Glucose 101 mg/dL (70-110); Potassium 4.4 mmol/L (3.5-5.5); Prostate Specific Antigen 1.09 ng/mL (0.000-4.500); Sodium 140 mmol/L (135-145); T4, Free (Free Thyroxine) 1.17 ng/dL (0.80-1.80); Total Bilirubin 0.9 mg/dL (0.3-1.2); Total Protein 7.1 g/dL (6.2-8.2)
[2023-11-14 17:16] LABS: Appearance,Urine Clear (Clear); Bilirubin,Urine Negative (Negative); Blood,Urine Negative (Negative); Color,Urine Yellow (Yellow); Ketones,Urine Negative (Negative); Nitrite,Urine Negative (Negative); PH, Urine 5.5; Specific Gravity,Urine 1.017 (1.001-1.030); Urobilinogen,Urine 0.2 E.U./DL
[2023-11-14 18:04] LABS: DHEA Sulfate 70.1 UG/DL (34.5-568.9); Insulin Level 12.1 mIU/mL (3.0-25.0)
[2023-11-16 06:16] LABS: Vitamin A 55 ug/dL (38-106)
== END | disposition home or self-care (01) ==
LOC: LABWHC1 10:01
PROVIDERS: ATTEND Family Medicine
DX: E87.6 Hypokalemia (principal); E83.42 Hypomagnesemia; R79.1 Abnormal coagulation profile; R73.09 Other abnormal glucose; R68.89 Other general symptoms and signs; R35.1 Nocturia
CPT/HCPCS: 36415; 80053; 80061; 81003; 82180; 82306; 82627; 82977; 83036; 83090; 83525; 83721; 83735; 84140; 84153; 84305; 84402; 84403; 84439; 84443; 84480; 84481; 84482; 84590; 85025; 85384; 85652; 86141

== ENCOUNTER → 2024-12-25 | Outpatient (CLI) | payer MEDICARE ==
[2024-12-25 15:29] LABS: C Reactive Protein <0.30 mg/dL (0.00-0.80); Chol/HDL Ratio 6.14 Ratio
[2024-12-25 15:30] LABS: % Iron Saturation 13.11 (15.00-50.00); ALT 20 U/L (10-49); AST 16 U/L (14-35); Albumin 4.3 g/dL (3.8-4.9); Albumin/Globulin Ratio 1.72 Ratio (1.60-3.17); Alkaline Phosphatase 79 U/L (41-126); BUN/Creat Ratio 28.78 Ratio (12.00-20.00); Blood Urea Nitrogen 25.9 mg/dL (9.0-27.0); Calcium 9.4 mg/dL (8.7-10.3); Carbon Dioxide 25.4 mmol/L (21.6-31.8); Chloride 103 mmol/L (96-109); Globulin 2.5 g/dL (1.6-3.3); Glucose 95 mg/dL (70-110); Iron 40 UG/DL (65-175); LDL Cholesterol,Calculated 144.1 mg/dL (0.0-131.0); Potassium 4.4 mmol/L (3.5-5.5); Prostate Specific Antigen 1.12 ng/mL (0.000-4.500); Sodium 137 mmol/L (135-145); T4, Free (Free Thyroxine) 1.05 ng/dL (0.80-1.80); Total Bilirubin 0.8 mg/dL (0.3-1.2); Total Iron Binding Capacity 305 UG/DL (228-460); Total Protein 6.8 g/dL (6.2-8.2)
[2024-12-25 16:00] LABS: Basophils # (A) 0.03 X 10*3/uL (0.00-0.10); Basophils % (A) 0.4 %; Eosinophils # (A) 0.26 X 10*3/uL (0.04-0.35); Eosinophils % (A) 3.7 %; HCT 49.8 % (39.6-50.0); HGB 15.9 g/dL (13.0-17.0); Lymphocytes # (A) 1.16 X 10*3/uL (0.90-5.00); Lymphocytes % (A) 16.6 %; MCH 29.2 pg (27.0-32.0); MCHC 31.9 g/dL (32.0-37.0); MCV 91.5 FL (80.0-97.0); Mean Platelet Volume 10.4 FL (9.5-12.2); Monocytes # (A) 0.64 X 10*3/uL (0.20-1.00); Monocytes % (A) 9.2 %; NRBC Per 100 WBC 0 X 10*3/uL (0.00-0.01); Neutrophils # (A) 4.88 X 10*3/uL (1.80-7.70); Platelet Count 279 X 10*3/uL (140-440); RBC 5.44 X 10*6/uL (4.40-5.60); RDW 13.9 % (11.5-14.5); WBC 6.98 X 10*3/uL (4.50-10.00)
[2024-12-25 17:06] LABS: Erythrocyte Sedimentation Rate 5 mm/Hr (0-20)
== END | disposition home or self-care (01) ==
LOC: LABWHC1 09:19
PROVIDERS: ATTEND Family Medicine
DX: Z00.00 Encounter for general adult medical examination without abnormal findings (principal); I10 Essential (primary) hypertension; I69.959 Hemiplegia and hemiparesis following unspecified cerebrovascular disease affecting unspecified side; E78.5 Hyperlipidemia, unspecified
CPT/HCPCS: 36415; 80053; 80061; 82728; 83036; 83540; 83550; 84153; 84439; 84443; 85025; 85384; 85652; 86140

== ENCOUNTER 2025-01-01 16:00 | Emergency (ER) | payer MEDICARE ==
[2025-01-01 16:13] VITALS: TEMP 97.8
--- NOTE | 2025-01-01 16:37 | ED ---
Fall HPI - General Chief Complaint: Fall Stated Complaint: Fall- Head Injury Time Seen by Provider: 01/01/25 16:13 Source: patient, RN notes reviewed Mode of arrival: ambulatory Limitations: no limitations - History of Present Illness Initial Comments: This is a 64-year-old male who presents to the emergency department for a fall. Patient's foot slipped on his deck and he tripped and fell off of the back of it, hitting the back of his head. Denies any loss of consciousness. Not taking any blood thinners. Currently complains of pain to the back of his neck. He does also have some discomfort to the left shoulder and right rib cage. MD Complaint: fall - Related Data Home Medications Medication Instructions Recorded Confirmed Metoprolol Tartrate [Lopressor] 25 mg PO BID 03/18/23 01/01/25 Aspirin [Adult Low Dose Aspirin EC] 81 mg PO DAILY 05/01/23 01/01/25 Allergies Allergy/AdvReac Type Severity Reaction Status Date / Time Penicillins Allergy Rash/Hives Verified 01/01/25 17:25 Review of Systems ROS Statement: Those systems with pertinent positive or pertinent negative responses have been documented in the HPI. ROS Other: All systems not noted in ROS Statement are negative. 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 Last Myocardial Infarction Date:: 2009 History of Any Multi-Drug Resistant Organisms: None Reported Past Surgical History: Coronary Bypass/CABG, Heart Catheterization With Stent Additional Past Surgical History / Comment(s): CABG x3, loop recorder 2019 Past Anesthesia/Blood Transfusion Reactions: No Reported Reaction Date of Last Stent Placement:: 03/2023 Past Psychological History: No Psychological Hx Reported Smoking Status: Never smoker Past Alcohol Use History: None Reported Past Drug Use History: None Reported General Exam Limitations: no limitations General appearance: alert, in no apparent distress Head exam: Present: atraumatic, normocephalic, normal inspection Eye exam: Present: normal appearance, PERRL, EOMI. Absent: scleral icterus, conjunctival injection, periorbital swelling Respiratory exam: Present: normal lung sounds bilaterally. Absent: respiratory distress, wheezes, rales, rhonchi, stridor, chest wall tenderness Cardiovascular Exam: Present: regular rate, normal rhythm Extremities exam: Present: other (No tenderness to palpation over the left shoulder. Full range of motion of the left upper extremity. 2+ radial pulses) Neurological exam: Present: alert, oriented X3, CN II-XII intact Psychiatric exam: Present: normal affect, normal mood Skin exam: Present: warm, dry, intact, normal color. Absent: rash Course Vital Signs 01/01/25 01/01/25 01/01/25 16:08 17:14 18:00 Temperature 97.8 F Pulse Rate 74 72 78 Respiratory 16 18 16 Rate Blood Pressure 180/88 172/94 171/82 O2 Sat by Pulse 99 99 100 Oximetry Medical Decision Making - Medical Decision Making This is a 64 year old male who presents to the emergency department for a fall and a head injury. Was pt. sent in by a medical professional or institution? @ -No Did you speak to anyone other than the patient for history? @ -No Did you review nursing and triage notes? @ -Yes, and I agree, it is accurate with regards to the patient's symptoms. Were old charts reviewed? @ -No Differential Diagnosis? @ -Differential Diagnosis Head Injury: Contusion, hematoma, intracranial hemorrhage, skull fracture, whiplash, concussion, this is not meant to be an all-inclusive list. EKG interpreted by me (3pts min.)? @ -Not obtained X-rays interpreted by me (1pt min.)? @ -X-ray of the left shoulder obtained. My interpretation identifies no acute fractures. Chest x-ray obtained, my interpretation identifies no localized consolidations or infiltrates. CT interpreted by me (1pt min.)? @ -Computed tomography scan of the brain and c-spine obtained. My interpretation identifies no evidence of an acute intracranial hemorrhage, skull fracture, or cervical spine fracture. U/S interpreted by me (1pt. min.)? @ -Not obtained What testing was considered but not performed? (CT, X-rays, U/S, labs)? Why? @ -None What meds were considered but not given? Why? @ -None Did you discuss the management of the patient with other professionals? @ -No Did you reconcile home meds? @ -No Was smoking cessation discussed for >3mins.? @ -No Was critical care preformed (if so, how long)? @ -No Were there social determinants of health that impacted care today? How? (Homelessness, low income, unemployed, alcoholism, drug addiction, transportation, low edu. Level, literacy, decrease access to med. care, long term, rehab)? @ -No Was there de-escalation of care discussed even if they declined? (Discuss DNR or withdrawal of care, Hospice)? @ -No What co-morbidities impacted this encounter? (DM, HTN, Smoking, COPD, CAD, Cancer, CVA, Hep., AIDS, mental health diagnosis, sleep apnea, morbid obesity)? @ -None Was patient admitted / discharged? @ -Discharged. CT scan of the brain and C-spine obtained revealing no acute process. X-ray of the left shoulder reveals no acute findings. X-ray of the right rib cage/PA chest demonstrates a cortical step-off on the right rib 4 that is thought to be present on one view possibly representing a minimally displaced fracture. Findings reviewed with the patient. He declined any pain medication in the emergency department. Advised ibuprofen and Tylenol as needed for pain relief as well as taking several deep breaths an hour despite the pain to reduce the risk of developing a secondary pneumonia with the possible rib fracture. Patient discharged home in stable condition. Case discussed with ED attending Dr. Mir. Return precautions reviewed in depth, the patient is instructed to return to the emergency department with any new, worsening, or concerning symptoms. Patient verbalized understanding. Undiagnosed new problem with uncertain prognosis? @ -None Drug Therapy requiring intensive monitoring for toxicity (Heparin, Nitro, Insulin, Cardizem)? @ -None Were any procedures done? @ -None Diagnosis/symptom? @ -Fall, head injury, right rib fracture Acute, or Chronic, or Acute on Chronic? @ -Acute Uncomplicated (without systemic symptoms) or Complicated (systemic symptoms)? @ -Uncomplicated Side effects of treatment? @ -None Exacerbation, Progression, or Severe Exacerbation] @ -Not applicable Poses a threat to life or bodily function? @ -No - Radiology Data Radiology results: report reviewed, image reviewed Disposition Clinical Impression: Fall, Head injury, Right rib fracture Disposition: HOME SELF-CARE Instructions (If sedation given, give patient instructions): Rib Fracture (ED) Additional Instructions: Return to the emergency department with any new, worsening, or concerning symptoms. Alternate with ibuprofen and Tylenol as needed for pain relief. Make sure you take several deep breaths an hour despite the pain over the right rib cage. You can apply topical pain relief medication such as lidocaine patches if the rib does start bothering you. Follow up with your primary care provider in 1-2 days. Is patient prescribed a controlled substance at d/c from ED?: No Referrals: Cristo Goldman DO [Primary Care Provider] - 1-2 days Time of Disposition: 17:44
--- NOTE | 2025-01-01 17:25 | CT ---
EXAMINATION TYPE: CT brain cspine wo con DATE OF EXAM: 01/01/2025 4:57 PM COMPARISON: 08/17/2020. CLINICAL INDICATION: Male, 64 years old with history of Fall; Fall, hit back of head, No LOC. Does ta ke asprin. C/O neck pain., pain TECHNIQUE: Brain: Multiple axial CT images of the brain were obtained without IV contrast. Cspine: Axial CT images from the skull base to the inferior aspect of T2 we obtained without intraven ous contrast. Coronal and sagittal reformatted images were also reviewed. . CT DLP: 1317.1 mGycm, Automated exposure control for dose reduction was used. FINDINGS: Brain: Extra-axial spaces: No abnormal extra-axial fluid collections. Ventricular system: Within normal limits Cerebral parenchyma: Remote injury to the right santos radiata No acute intraparenchymal hemorrhage o r mass effect. The lino-white junction is well differentiated. Cerebellum: Unremarkable. Mass effect: No evidence of midline shift. Intracranial vasculature: unremarkable Soft tissues: Normal. Calvarium/osseous structures: No depressed skull fracture. Paranasal sinuses and mastoid air cells: Clear. Visualized orbits: Orbital contents are intact. Cervical spine: Fracture: None. Osseous structures: Multilevel degenerative disc disease changes with endplate spurring and disc oste ophyte complex's. Large osteophytes project anteriorly to C4 C5 C6 and C7. Vertebral alignment: Within normal limits. Spinal canal/Neural Foramina: No evidence of significant spinal canal narrowing. No evidence for sign ificant neural foraminal stenosis. Neck soft tissues: Prevertebral soft tissues are within normal limits. Other: The airway is patent. The lung apices are clear. IMPRESSION: 1. No acute intracranial process. 2. Remote injury to the right santos radiata new from 08/17/2020. 3. No evidence of cervical spine fracture. 4. Mild multilevel degenerative disc disease with large osteophytes anterior to C4-C7 correlate for dysphagia. [facility], , 01/01/2025 5:23 PM
--- NOTE | 2025-01-01 17:28 | XR ---
EXAMINATION TYPE: XR shoulder complete LT DATE OF EXAM: 01/01/2025 5:00 PM COMPARISON: None CLINICAL INDICATION: Male, 64 years old with history of Fall, pain TECHNIQUE: XR shoulder complete LT; examined in AP, internally rotated and scapular Y projections. FINDINGS: No evidence of acute osseous pathology, joint dislocation, or soft tissue swelling. The remaining po rtions of the visualized chest are unremarkable. Degeneration changes of the acromion, distal clavic le with osteophyte formation. There is osteophyte formation of the glenoid and humeral head. There is joint space narrowing of glenohumeral joint. IMPRESSION: 1. No acute osseous pathology. 2. Mild shoulder osteoarthrosis. [facility], , 01/01/2025 5:26 PM
--- NOTE | 2025-01-01 17:28 | XR ---
EXAMINATION TYPE: XR ribs RT w pa chest xray DATE OF EXAM: 01/01/2025 5:00 PM COMPARISON: 03/18/2023. CLINICAL INDICATION: Male, 64 years old with history of Fall, pain TECHNIQUE: XR ribs RT w pa chest xray; Frontal and oblique views of the ribs with frontal chest radio graph. FINDINGS: Cortical step-off of right rib 4 cm one view. The remainder of the ribs have a normal appea tram. No additional evidence of fracture. Sternotomy wires are present in the upper quarter present . Multilevel degeneration changes of the spine. Overall, the lungs are clear. The cardiac silhouette is normal in size. The remaining osseous structures are intact. IMPRESSION: 1. Cortical step-off of right rib 4 is thought to be present on one view possibly representing minim ally displaced fracture. 2. Cholelithiasis. [facility], , 01/01/2025 5:25 PM
[2025-01-01] MEDS: ACET/COD 300 MG/30 MG STARTER PACK 6 TAB BTL PO STA (17:58)
[2025-01-01 18:01] VITALS: BP 171/82; PULSE 78; RESP 16
== END 2025-01-01 18:10 | disposition home or self-care (01) ==
LOC: EC 16:00
DX: S22.31XA Fracture of one rib, right side, initial encounter for closed fracture (principal); S09.90XA Unspecified injury of head, initial encounter; Z86.73 Personal history of transient ischemic attack (TIA), and cerebral infarction without residual deficits; Z88.0 Allergy status to penicillin; W01.198A Fall on same level from slipping, tripping and stumbling with subsequent striking against other object, initial encounter
CPT/HCPCS: 70450; 72125; 99284